=== PATIENT | female | born 1940 | race Caucasian/White ===

== ENCOUNTER 2020-03-26 01:26 | Inpatient (IN) | payer OTHER ==
--- OUTSIDE RECORDS SUMMARY | 2020-03-26 01:28 | XMS REPORT | Continuity of Care Document ---
:1940 Author Organization [facility] t Address [address] [place] [address] Care Team Providers Name Role Phone Isis PRASHANTH Attending Clinician Fernando Mendez MD Attending Clinician Ollie MELO, K.H. Attending Clinician Payers Payer Name Policy Type Policy Number Effective Date Expiration Date S ource Problems This patient has no known problems. Allergies, Adverse Reactions, Alerts This patient has no known allergies or adverse reactions. Medications This patient has no known medications. Procedures This patient has no known procedures. Encounters Start End Encounter Admission Attending Care Care Encounter Source Date/Time Date/Time Type Type Clinicians Facility Department ID 2020-03-23 2020-03-23 Urgent Isis [facility] [id number] 18:38:49 18:58:49 Care [place] [id number] Mi [id number] Ria [phone] nal [address] 2020-03-02 2020-03-02 Refill JAY Mendez 1.2.840.114 [id number] 00:00:00 00:00:00 Margret A Bulger [id number] [place] [id number] Professio [phone] [address] 2020-02-18 2020-02-18 [place] Mendez, [facility] 1.2.840.114 [id number] 00:00:00 00:00:00 Margret Fernando ReeseBulger [id number] [place] [id number] Professio [phone] [address] 2020-02-10 2020-02-10 Refill Mendez, [facility] 1.2.840.114 [id number] 00:00:00 00:00:00 Margretkim Stark [id number] [place] [id number] Professio [phone] [address] 2020-02-09 2020-02-09 [place] [facility] [id number] 00:00:00 00:00:00 Margret Stark [id number] [place] [id number] Professio [phone] [address] 2019-12-09 2019-12-09 [facility] [id number] 00:00:00 00:00:00 Sendkristie K.H. Bulger [id number] [place] [id number] Professio [phone] [address] 2019-12-08 2019-12-08 [place] [facility] 1.2.840.114 [id number] 00:00:00 00:00:00 Margret [place]eseton 350.1.13.10 [place] [id number] Professio [phone] [address] 2019-12-01 2019-12-01 [facility] [id number] 00:00:00 00:00:00 Sendil K.H. Bulger [id number] [place] 4.2.7.2.686 Professio [phone] [address] 2019-11-20 2019-11-20 [facility]phone [facility] 1.2.840.114 [id number] 00:00:00 00:00:00 Margret Stark [id number] [place] [id number] [facility] [phone] [address] 2019-11-10 2019-11-10 Office Andrea [facility] [id number] 14:20:49 16:09:13 Visit Margretaniceto Rees[place] 350.1.13.10 [place] 4.2.7.2.686 [facility] [phone] [address] Results Test Description Test Time Test Comments Results Result [facility] e Comments BREAST,BIOPSY 2018-08-21 08:50:00 RUN DATE: 08/21/18 [facility] PAGE 1 RUN TIME: 902 Specimen Inquiry RUN USER: INTERFACE RYAN ENT: JENNIE RASCON LOC: ANN U #: [id number] AGE/SX: 78/F ROOM: RE08/12/18REG DR: Margret Mendez : 42 BED: DIS: STATUS: REG RCR TLOC: SPEC #: [id number] RECD: 08/19/18 STATUS: SHAHEEN VEGA #: [id number] BARBARA: 08/19/18- SUBM DR: Margret Mendez MD ENTERED: 08/20/18 SP TYPE: BREABX OTHR DR: Catherine Ndiaye MD ORDERED: LEVEL IV CODES: [id number] - BREAST, NOS COPIES TO: Catherine Ndiaye MD [address] [place] [address] 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 central comedo necrosis coarse microcalcifications ER/MO prognostic markers pending on block A1 ADDENDUM PENDING, SPECIMEN IS BEING SENT TO [facility] Tissue code 1 CPT code(s): 97571 cds/kr dt: 08/21/18 CONTINUED ON NEXT PAGE RUN DATE: 08/21/18 [facility] PAGE 2 RUN TIME: 0903 Specimen Inquiry RUN USER: INTERFACE SPEC #: [id number] PATIENT: JENNIE RASCON #[id number] (Continued) ------- GROSS DESCRIPTION ANATOMIC SOURCE OF TISSUE (per Requisition): RIGHT breast calcifications 3:00 position The specimen is received in a formalin-filled container, labeled with the patient's name and designated "RIGHT breast @ 3:00". The specimen consists of multiple ring-pink and yellow, fibrofatty, cylindrical soft tissues, 0.2 - 2.3 cm in length, submitted in toto as A1 and A2, with microcalcifications as A1. 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 No invasive carcinoma is identified. Prognostic markers for ER and MO will be performed on block A1. monica/kr dt: 08/21/18 --- Signed Ed Sharpe Jose David 08/21/18 0850 END OF REPORT BREAST,BIOPSY 2018-08-21 08:50:00 RUN DATE: 08/29/18 [facility] PAGE 1 RUN TIME: 1711 Specimen Inquiry RUN USER: INTERFACE RYAN ENT: JENNIE RASCON LOC: ANN U #: [id number] AGE/SX: 78/F ROOM: RE08/19/18REG DR: Margret Mendez : 42 BED: DIS: STATUS: REG REF TLOC: SPEC #: [id number] RECD: 08/19/18 STATUS: SHAHEEN VEGA #: [id number] BARBARA: 08/19/18- SUBM DR: Margret Mendez MD ENTERED: 08/20/18 SP TYPE: BREABX OTHR DR: Catherine Ndiaye MD ORDERED: LEVEL IV ADDENDUM FINDINGS Addendum #1 Entered: 08/25/18 The following results are received from [facility], [place], [place] on August 22, 2018. BODY SITE: RIGHT BREAST [id number] HISTOLOGY IMAGE ANALYSIS, GLOBAL INTERPPRETATION: Analysis is performed on the in-situ component present. ER: POSITIVE Tumor Stained: 99% Intensity: 3+ Internal Control: Present, positive PgR: POSITIVE Tumor Stained: 10% Intensity: 3+ Internal Control: Present, positive COMMENT: Specimen handling met the requirements specified in the latest version of the ASCO/CAP guidelines. I acknowledge the above findings. CTam Sharpe M.D., Pathologist/ksr August 25, 2018 @ 0923 Addendum Signed Ed Sharpe 08/29/18 9569 (prelim) CONTINUED ON NEXT PAGE RUN DATE: 08/29/18 [facility] PAGE 2 RUN TIME: 171 Specimen Inquiry RUN USER: INTERFACE SPEC #: [id number] PATIENT: JENNIE RASCON #[id number] (Continued) ------- ADDENDUM FINDINGS (Continued) Ed Sharpe 08/29/18 1711 CODES: [id number] - BREAST, NOS COPIES TO: Catherine Ndiaye MD [address] [place] [address] [email or web address] Margret Mendez MD [address] [place] [address] [address] [place], [place] [address] PROCEDURES: LEVEL IV (Incomplete) TISSUES: BREAST, NOS - RIGHT BREAST BIOPSY CLINICAL HISTORY 78 year old, stereotactic biopsy, 7 cores in formalin at 3:00 pm (wpd) NOTE: RIGHT breast calcifications @ 3:00: In formalin: 08/19/18 @ 1500 Out of formalin: 08/20/18 @ 1825 FINAL DIAGNOSIS RIGHT breast at 3:00, core biopsies: - 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), 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 central comedo necrosis coarse microcalcifications ER/MO prognostic markers pending on block A1 ADDENDUM PENDING, SPECIMEN IS BEING SENT TO [facility] Tissue code 1 CPT code(s): 10859 cds/kr dt: 08/21/18 CONTINUED ON NEXT PAGE RUN DATE: 08/29/18 [facility] PAGE 3 RUN TIME: 1711 Specimen Inquiry RUN USER: INTERFACE SPEC #: [id number] PATIENT: JENNIE RASCON #[id number] (Continued) ------- GROSS DESCRIPTION ANATOMIC SOURCE OF TISSUE (per Requisition): RIGHT breast calcifications 3:00 position The specimen is received in a formalin-filled container, labeled with the patient's name and designated "RIGHT breast @ 3:00". The specimen consists of multiple ring-pink and yellow, fibrofatty, cylindrical soft tissues, 0.2 - 2.3 cm in length, submitted in toto as A1 and A2, with microcalcifications as A1. 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 No invasive carcinoma is identified. Prognostic markers for ER and MO will be performed on block A1. monica/vivi dt: 08/21/18 --- Signed Ed Sharpe 08/21/18 0850 END OF REPORT
--- OUTSIDE RECORDS SUMMARY | 2020-03-26 01:28 | XMS REPORT | Summary of Care ---
:1940 Author Organization [facility] [place] [facility] Address [address] [place] [address] Care Team Providers Name Role Phone Margret Mendez MD Primary Care Provider Reason for Visit Reason Comments Refill Request Encounter Details Date Type Department Care Team Description 02/10/2020 Refill [facility] Pediatric and Lilliana Mendez, Refill Request Adult Primary Care- [address] [facility] [address] [place] [address] [place] [address] [phone] Allergies Active Allergy Reactions Severity Noted Date Comments Codeine Nausea and/or Vomiting 09/23/2018 Cephalexin Other - See comments 09/18/2016 Reactio n - Yeast Infection documented as of this encounter (statuses as of 02/13/2020) Medications Medication Sig Dispensed Refills Start End Status Date Date CYCLOSPORINE (RESTASIS Place in 0 Active OPHTHALMIC)Indications: each eye. Palpitations CALCIUM CITRATE/VITAMIN Take by 0 Active D3 (CALCIUM CITRATE + D mouth. ORAL)Indications: Palpitations Walker (ULTRA-LIGHT Use as 1 Each 0 01/25/20 Active ROLLATOR) Misc directed 18 blood sugar diagnostic Use TID, DX 100 Box 11 02/01/20 Active strip E11.9 (Brand 18 upon insurance approval) lancets-blood glucose 1 Each 3 100 Each 11 02/01/20 Active strips 30 gauge Cmpk (three) times 18 daily. DX E11.9 (Brand upon insurance approval) Blood-Glucose Meter Use TID, DX 1 Each 0 02/01/20 Active (BLOOD GLUCOSE E11.9 (Brand 18 MONITORING) Kit upon insurance approval) cyanocobalamin/cobamami Place under 0 Active de (B12 SL) the tongue. Extended release multivitamin tablet Take 1 tablet 0 Active by mouth daily. sennosides (SENOKOT Take by 0 Active ORAL) mouth. cholecalciferol, Take 1,000 0 Ac tive vitamin D3, (VITAMIN Units by D3) 1,000 unit tablet mouth daily. ipratropium 0.03 % Use 2 Sprays 30 mL 3 02/25/20 Active nasal sprayIndications: in each 18 Cough nostril 3 (three) times daily. dapagliflozin (FARXIGA) Take 1 tablet 90 tablet 3 05/24/19 Active 5 mg tabletIndications: by mouth 20 Type 2 diabetes daily. mellitus without complication, without long-term current use of insulin mirabegron (MYRBETRIQ) Take 1 tablet 90 tablet 3 06/07/19 Active 50 mg by mouth 20 tabletIndications: daily. Palpitations diclofenac 50 mg Take 1 tablet 90 tablet 3 09/22/19 Active tabletIndications: by mouth 3 20 Primary osteoarthritis (three) times of right knee daily. Diclofenac Sodium Take 2-4 100 g 3 09/23/19 Ac tive (VOLTAREN) 1 % grams three 20 gelIndications: times a day Osteoarthritis as needed for involving multiple pain joints on both sides of body ergocalciferol, vitamin Take 1 12 capsule 1 11/20/19 Active d2, (VITAMIN D2) 1,250 capsule by 20 mcg (50,000 unit) mouth weekly. capsuleIndications: Vitamin D deficiency lisinopril (PRINIVIL) 5 Take 1 tablet 90 tablet 3 12/04/19 Active mg tablet by mouth 20 daily. fluconazole 150 mg Take one 6 tablet 0 12/16/19 A ctive tabletIndications: tablet now 20 Yeast infection for yeast infection, and in 72 hours take a second pill. Repeat this for 2 weeks. DILTIAZEM 180 mg 24 hr TAKE ONE 90 capsule 3 02/13/20 Active capsuleIndications: CAPSULE BY 20 Palpitations MOUTH EVERY DAY ESCITALOPRAM OXALATE 10 TAKE ONE 90 tablet 3 02/13/20 Active mg tabletIndications: TABLET BY 20 Reactive depression MOUTH EVERY DAY PRAVASTATIN 20 mg TAKE ONE 90 tablet 3 02/13/20 Ac tive tabletIndications: TABLET BY 20 Palpitations MOUTH EVERY DAY AT BEDTIME HYDROCHLOROTHIAZIDE TAKE ONE 90 capsule 3 02/13/20 Active 12.5 mg CAPSULE BY 20 capsuleIndications: MOUTH EVERY Palpitations DAY BYSTOLIC 10 mg TAKE ONE 90 tablet 3 02/13/20 Activ e tabletIndications: TABLET BY 20 Palpitations MOUTH EVERY DAY escitalopram oxalate 10 Take 1 tablet 90 tablet 3 02/07/20 Discontinued mg tabletIndications: by mouth 19 (Reorder) Reactive depression daily. diltiazem XR 180 mg 24 Take 1 90 capsule 3 02/07/20 Discontinued hr capsuleIndications: capsule by 19 (Reorder) Palpitations mouth daily. hydroCHLOROthiazide Take 1 90 capsule 3 02/07/20 Discontinued 12.5 mg capsule by 19 (Reorder) capsuleIndications: mouth daily. Palpitations nebivolol 10 mg Take 1 tablet 90 tablet 3 02/07/20 Discontinued tabletIndications: by mouth 19 ( Reorder) Palpitations daily. pravastatin 20 mg Take 1 tablet 90 tablet 3 02/07/20 Discontinued tabletIndications: by mouth at 19 (Reorder) Palpitations bedtime. Hospital, Clinic, or Ordered Dose Route Frequency Start Date End D ate Status Other Facility Administered Medication clindamycin in d5w 600 mg IVPB O.R. HOLDING ONCE 09/23/2018 Active (CLEOCIN) 600 mg/50 mL Piggyback 600 mg documented as of this encounter (statuses as of 02/13/2020) Active Problems Problem Noted Date Ductal carcinoma in situ (DCIS) of right breast 2018 Overview: Added automatically from request for annie turner [id number] Chronic right shoulder pain 03/11/2018 Decreased range of motion of right shoulder 03/11/2018 Decreased activities of daily living (ADL) 03/11/2018 Type 2 diabetes mellitus without complication, without long-term current 02/24/2018 use of insulin Osteoarthritis involving multiple joints on both sides of body 02/24/2018 Reactive depression 02/24/2018 documented as of this encounter (statuses as of 02/13/2020) Immunizations Name Administration Dates Next Due Influenza High Dose 02/06/2019, 02/24/2018 Pneumococcal Polysaccharide, PPSV23 (PNEUMOVAX) 11/06/2018 documented as of this encounter Social History Tobacco Use Types Packs/Day Years Used Date Never Smoker Smokeless Tobacco: Never Used Alcohol Use Drinks/Week oz/Week Comments No Sex Assigned at Date Recorded Not on file documented as of this encounter Last Filed Vital Signs Not on filedocumented in this encounter Plan of Treatment Health Maintenance Due Date Last Done Comments DTaP,Tdap,and Td Vaccines (1 - 02/12/1960 Tdap) Zoster Recombinant Vaccine 1991 (SHINGRIX) (1 of 2) Medicare Wellness Visit 2006 EYE EXAM 03/04/2019 03/04/2018 FOOT EXAM 04/28/2019 04/28/2018, 04/28/2018 URINE MICROALBUMIN 04/28/2019 04/28/2018 INFLUENZA VACCINE (#1) 2019 02/06/2019, 02/24/2018 Depression Screening 04/14/2020 04/14/2019 HgA1C 05/13/2020 11/11/2019, 11/06/2018, 04/28/2018, Additional history exists CREATININE (SERUM) 11/10/2020 11/11/2019, 11/07/2018, 02/25/2018, Additional history exists LDL-C 11/10/2020 11/11/2019, 12/16/2017, 10/29/2016 Osteoporosis Screening 10/06/2025 10/07/2015 PNEUMOCOCCAL VACCINES 65+ Completed 11/06/2018 documented as of this encounter Results Not on filedocumented in this encounter Visit Diagnoses Diagnosis Palpitations Reactive depression Dysthymic disorder documented in this encounter Insurance Payer Benefit Plan / Subscriber ID Effective Dates Phone Addre ss Type Group MEDICARE MEDICARE PART [id number] 2006-[place] [phone] Medicare A & B [place] 2 [id number] LAXMI [place]ERT[place] [id number] BASIA LIV[place] [id number] 2011-[place] field nt documented as of this encounter
--- OUTSIDE RECORDS SUMMARY | 2020-03-26 01:29 | XMS REPORT | Summary of Care ---
:1940 Author Organization [facility] - [facility] Address [address] [place] [address] Care Team Providers Name Role Phone Margret Mendez MD Primary Care Provider [phone] Reason for Visit Reason Comments Rx Concern/Question Encounter Details Date Type Department Care Team Description 02/09/2020 Telephone [facility] Pediatric Nneka Mendez Rx Concern/Question and Adult Primary Care- MD Fernando [place] [address], [address] [place] [address] [place] [address] [phone] Allergies Active Allergy Reactions Severity Noted Date Comments Codeine Nausea and/or Vomiting 09/23/2018 Cephalexin Other - See comments 09/18/2016 Reactio n - Yeast Infection documented as of this encounter (statuses as of 02/18/2020) Medications Medication Sig Dispensed Refills Start End [...] second pill. Repeat this for 2 weeks. escitalopram oxalate 10 Take 1 tablet 90 tablet 3 02/07/20 Discontinued mg tabletIndications: by mouth 19 (Reorder) Reactive depression daily. diltiazem XR 180 mg 24 Take 1 90 capsule 3 02/07/20 Discontinued hr capsuleIndications: capsule by 19 (Reorder) Palpitations mouth daily. hydroCHLOROthiazide Take 1 90 capsule 3 10/11/20 Discontinued 12.5 mg capsule by 19 (Reorder) [...] as of this encounter (statuses as of 02/18/2020) Active Problems Problem Noted Date Ductal carcinoma in situ (DCIS) of right breast 2018 Overview: Added automatically from request for annie turner [id number] Chronic right shoulder pain 03/11/2018 Decreased range of motion of right shoulder 03/11/2018 Decreased activities of daily living (ADL) 03/11/2018 Type 2 diabetes mellitus without complication, without long-term current 02/24/2018 use of insulin Osteoarthritis involving multiple joints on both sides of body 02/24/2018 Reactive depression 02/24/2018 documented as of this encounter (statuses as of 02/18/2020) Immunizations Name Administration Dates Next Due Influenza [...] Signs Not on filedocumented in this encounter Miscellaneous Notes Telephone Encounter - Margret Mendez MD - 02/18/2020 8:33 AM CDT Please assist in getting hospital bed, let patient know we are working on this. She needs an appointment in 3 months, ok for telehealth. Hospital Bed: I certify that Ondina Hines is under my care and that I had a oagg-qe-svoy encounter with this patienton 11/10/2019. The primary reason for the durable medical equipment: chronic pain- requires positioning of the bodyto alleviate pain in ways not feasible in ordinary bed. I am ordering and certify that based on my findings, the following is medically necessary durable medical equipment: Hospital bed. Height: Ht Readings from Last 1 Encounters: 04/14/19 5' 6" (1.676 m) Weight: Wt Readings from Last 1 Encounters: 11/10/19 193 lb 4.8 oz (87.7 kg) Duration of need: 99 months. elephone Encounter - Amelia Oakes - 02/18/2020 7:37 AM CDTPlease address greater than 48 hours. elephone Encounter - Amelia Oakes - 02/16/2020 7:38 AM CDTPlease address greater than 48 hours. elephone Encounter - Mary Shoemaker RN - 02/15/2020 11:53 AM CDTPatient is complaining of generalized weakness with her knees, legs and complaints of body pain. Nadya ent also states she is needing assistance with ambulating and getting in and out of shower and bed. elephone Encounter - Margret Mendez MD - 02/14/2020 5:59 PM CDTI need more information for medicare. Is she having severe arthritis or severe chronic body pain? Telephone Encounter - Amelia Oakes - 02/09/2020 3:32 PM CDTPt stated she is having a hard time getting in and out of the bed in would like to know if a prescription can be written for a hospital bed. documented in this encounter Plan of Treatment Health Maintenance Due Date Last Done Comments DTaP,Tdap,and Td Vaccines ( - 02/12/1960 Tdap) Zoster Recombinant Vaccine 1991 [...] Results Not on filedocumented in this encounter Insurance Payer Benefit Plan / Subscriber ID Effective Dates Phone Addre ss Type Group MEDICARE MEDICARE PART [id number] 2006-[place] [phone] Medicare A & B nt 2 [id number] LAXMI [place]ERT[place] [id number] BASIA LIV[place] [id number] 2011-[place] field nt documented as of this encounter
--- OUTSIDE RECORDS SUMMARY | 2020-03-26 01:29 | XMS REPORT | Summary of Care ---
:1940 Author Organization [facility] - [facility] Address [address] [place] [address] Care Team Providers Name Role Phone Margret Mendez MD Primary Care Provider Reason for Visit Reason Comments DME Hospital Bed Encounter Details Date Type Department Care Team Description 02/18/2020 Telephone [facility] Nneka Mendez DME (Hospital Bed) and Adult Primary Care- MD Fernando [place] [address], [address] [place] [address] [place] [address] [phone] Allergies Active Allergy Reactions Severity Noted Date Comments Codeine Nausea and/or Vomiting 09/23/2018 Cephalexin Other - See comments 09/18/2016 Reactio n - Yeast Infection documented as of this encounter (statuses as of 02/18/2020) Medications Medication Sig Dispensed Refills Start Date End Date Status CYCLOSPORINE (RESTASIS Place in each 0 Active OPHTHALMIC)Indications: eye. Palpitations CALCIUM CITRATE/VITAMIN Take by mouth. 0 Active D3 (CALCIUM CITRATE + D ORAL)Indications: Palpitations Walker (ULTRA-LIGHT Use as directed 1 Each 0 01/24/2018 Active ROLLATOR) Misc blood sugar diagnostic Use TID, DX 100 Box 11 01/31/2018 Active strip E11.9 (Brand upon insurance approval) lancets-blood glucose 1 Each 3 100 Each 11 01/31/2018 Active strips 30 gauge Cmpk (three) times daily. DX E11.9 (Brand upon insurance approval) Blood-Glucose Meter Use TID, DX 1 Each 0 01/31/2018 Active (BLOOD GLUCOSE E11.9 (Brand MONITORING) Kit upon insurance approval) cyanocobalamin/cobamamide Place under 0 Active (B12 SL) the tongue. Extended release multivitamin tablet Take 1 tablet 0 Active by mouth daily. sennosides (SENOKOT ORAL) Take by mouth. 0 Active cholecalciferol, vitamin Take 1,000 0 Active D3, (VITAMIN D3) 1,000 Units by mouth unit tablet daily. ipratropium 0.03 % nasal Use 2 Sprays in 30 mL 3 8 Active sprayIndications: Cough each nostril 3 (three) times daily. dapagliflozin (FARXIGA) 5 Take 1 tablet 90 tablet 3 05/24/2019 Active mg tabletIndications: by mouth daily. Type 2 diabetes mellitus without complication, without long-term current use of insulin mirabegron (MYRBETRIQ) 50 Take 1 tablet 90 tablet 3 06/07/2019 Active mg tabletIndications: by mouth daily. Palpitations diclofenac 50 mg Take 1 tablet 90 tablet 3 09/22/2019 Active tabletIndications: by mouth 3 Primary osteoarthritis of (three) times right knee daily. Diclofenac Sodium Take 2-4 grams 100 g 3 09/23/2019 Active (VOLTAREN) 1 % three times a gelIndications: day as needed Osteoarthritis involving for pain multiple joints on both sides of body ergocalciferol, vitamin Take 1 capsule 12 capsule 1 11/20/2019 Active d2, (VITAMIN D2) 1,250 by mouth mcg (50,000 unit) weekly. capsuleIndications: Vitamin D deficiency lisinopril (PRINIVIL) 5 Take 1 tablet 90 tablet 3 12/04/2019 Active mg tablet by mouth daily. fluconazole 150 mg Take one tablet 6 tablet 0 12/16/2019 Active tabletIndications: Yeast now for yeast infection infection, and in 72 hours take a second pill. Repeat this for 2 weeks. DILTIAZEM 180 mg 24 hr TAKE ONE 90 capsule 3 02/13/2020 Active capsuleIndications: CAPSULE BY Palpitations MOUTH EVERY DAY ESCITALOPRAM OXALATE 10 TAKE ONE TABLET 90 tablet 3 02/13/2020 Active mg tabletIndications: BY MOUTH EVERY Reactive depression DAY PRAVASTATIN 20 mg TAKE ONE TABLET 90 tablet 3 02/13/2020 Active tabletIndications: BY MOUTH EVERY Palpitations DAY AT BEDTIME HYDROCHLOROTHIAZIDE 12.5 TAKE ONE 90 capsule 3 02/13/2020 Active mg capsuleIndications: CAPSULE BY Palpitations MOUTH EVERY DAY BYSTOLIC 10 mg TAKE ONE TABLET 90 tablet 3 02/13/2020 Active tabletIndications: BY MOUTH EVERY Palpitations DAY Hospital, Clinic, or Ordered Dose Route Frequency [...] Added automatically from request for annie turner [id number] Chronic right shoulder pain 03/11/2018 Decreased range [...] this encounter Miscellaneous Notes Telephone Encounter - Clotilde Ricketts - 02/18/2020 5:02 PM [facility] through [facility]. Clotilde Ricketts 02/18/2020 5:03 PM documented in this encounter Plan of Treatment [...] Addre ss Type Group MEDICARE MEDICARE PART [id number] 2006-[place] [phone] Medicare A & B nt 2 [id number] [place] [id number] [place] [place] [id number] 2011-Jodi Tric are nt documented as of this encounter
--- OUTSIDE RECORDS SUMMARY | 2020-03-26 01:29 | XMS REPORT | Summary of Care ---
:1940 Author Organization [facility] - [facility] Address [address] [place] [address] Care Team Providers Name Role Phone Margret Mendez MD Primary Care Provider Reason for Visit Reason Comments Refill Request Encounter Details Date Type Department Care Team Description 03/02/2020 Refill [facility] Pediatric and Lilliana Mendez, Refill Request Adult Primary Care- [address] [facility] [address] [place] [address] [place] [address] [phone] Allergies Active Allergy Reactions Severity Noted Date Comments Codeine Nausea and/or Vomiting 09/23/2018 Cephalexin Other - See comments 09/18/2016 Reactio n - Yeast Infection documented as of this encounter (statuses as of 03/04/2020) Medications Medication Sig Dispensed Refills Start End [...] 18 Cough nostril 3 (three) times daily. Diclofenac Sodium Take 2-4 100 g [...] TABLET BY 20 Palpitations MOUTH EVERY DAY mirabegron (MYRBETRIQ) Take 1 tablet 90 tablet 3 03/04/20 Active 50 mg by mouth 20 tabletIndications: daily. Palpitations dapagliflozin (FARXIGA) Take 1 tablet 90 tablet 3 03/04/20 Active 5 mg tabletIndications: by mouth 20 Type 2 diabetes daily. mellitus without complication, without long-term current use of insulin diclofenac 50 mg Take 1 tablet 90 tablet 3 03/04/20 Active tabletIndications: by mouth 3 20 Primary osteoarthritis (three) times of right knee daily. dapagliflozin (FARXIGA) Take 1 tablet 90 tablet 3 05/24/19 Discontinued 5 mg tabletIndications: by mouth 20 020 (Reorder) Type 2 diabetes daily. mellitus without complication, without long-term current use of insulin mirabegron (MYRBETRIQ) Take 1 tablet 90 tablet 3 06/07/1909/28 Discontinued 50 mg by mouth 20 020 (Reorder) tabletIndications: daily. Palpitations diclofenac 50 mg Take 1 tablet 90 tablet 3 09/22/19 Discontinued tabletIndications: by mouth 3 20 020 (Reorder) Primary osteoarthritis (three) times of right knee daily. Hospital, Clinic, or Ordered Dose Route Frequency Start Date End D ate Status Other Facility Administered Medication clindamycin in d5w 600 mg IVPB O.R. HOLDING ONCE 09/23/2018 Active (CLEOCIN) 600 mg/50 mL Piggyback 600 mg documented as of this encounter (statuses as of 03/04/2020) Active Problems Problem Noted Date Ductal carcinoma in situ (DCIS) of right breast 2018 Overview: Added automatically from request for annie johnny [id number] Chronic right shoulder pain 03/11/2018 Decreased range of motion of right shoulder 03/11/2018 Decreased activities of daily living (ADL) 03/11/2018 Type 2 diabetes mellitus without complication, without long-term current 02/24/2018 use of insulin Osteoarthritis involving multiple joints on both sides of body 02/24/2018 Reactive depression 02/24/2018 documented as of this encounter (statuses as of 03/04/2020) Immunizations Name Administration Dates Next Due Influenza [...] in this encounter Visit Diagnoses Diagnosis Palpitations Type 2 diabetes mellitus without complic ation, without long-term current use of insulin Primary osteoarthritis of right knee Primary localized osteoarthrosis, lower leg documented in this encounter Insurance Payer Benefit Plan / Subscriber ID Effective Dates Phone Addre ss Type Group MEDICARE MEDICARE PART [id number] 2006-[place] [phone] Medicare A & B nt 2 [id number] [place] [id number] [place] [place] [id number] 2011-Jodi field nt documented as of this encounter
--- OUTSIDE RECORDS SUMMARY | 2020-03-26 01:30 | XMS REPORT | Summary of Care ---
:[address] [facility] - [facility] Address [address] [place] [id number] Care Team Providers Name Role Phone Margret Mendez MD Primary Care Provider [phone] Reason for Visit Reason Comments Fever low grade Cough All symptoms started last ni ght Encounter Details Date Type Department Care Team Description 03/23/2020 Urgent Care [facility] Family Unknown, Attending Denisse Calixto (Primary Dx); Medicine - Logan Jon Marinelli, ACCOUNTS PAYABLE PROFESSIONAL [address] [place] [address] [phone] Exposure to SARS-associated coronavirus [address] [place] [id number] Allergies Active Allergy Reactions Severity Noted Date Comments Codeine Nausea and/or Vomiting 09/23/2018 Cephalexin Other - See comments 09/18/2016 Reactio n - Yeast Infection documented as of this encounter (statuses as of 03/23/2020) Medications Medication Sig Dispensed Refills Start Date [...] Cough each nostril 3 (three) times daily. Diclofenac Sodium Take 2-4 grams 100 [...] Active tabletIndications: BY MOUTH EVERY Palpitations DAY mirabegron (MYRBETRIQ) 50 Take 1 tablet 90 tablet 3 03/04/2020 Active mg tabletIndications: by mouth daily. Palpitations dapagliflozin (FARXIGA) 5 Take 1 tablet 90 tablet 3 03/04/2020 Active mg tabletIndications: by mouth daily. Type 2 diabetes mellitus without complication, without long-term current use of insulin diclofenac 50 mg Take 1 tablet 90 tablet 3 03/04/2020 Active tabletIndications: by mouth 3 Primary osteoarthritis of (three) times right knee daily. Hospital, Clinic, or Ordered Dose Route Frequency Start Date End D ate Status Other Facility Administered Medication clindamycin in d5w 600 mg IVPB O.R. HOLDING ONCE 09/23/2018 Active (CLEOCIN) 600 mg/50 mL Piggyback 600 mg documented as of this encounter (statuses as of 03/23/2020) Active Problems Problem Noted Date Ductal carcinoma in situ (DCIS) of right breast 2018 Overview: Added automatically from request for annie turner [id number] Chronic right shoulder pain 03/11/2018 Decreased range of motion of right shoulder 03/11/2018 Decreased activities of daily living (ADL) 03/11/2018 Type 2 diabetes mellitus without complication, without long-term current 02/24/2018 use of insulin Osteoarthritis involving multiple joints on both sides of body 02/24/2018 Reactive depression 02/24/2018 documented as of this encounter (statuses as of 03/23/2020) Immunizations Name Administration Dates Next Due Influenza High Dose 02/06/2019, 02/24/2018 Pneumococcal Polysaccharide, PPSV23 (PNEUMOVAX) 11/06/2018 documented as of this encounter Social History Tobacco Use Types Packs/Day Years Used Date Never Smoker Smokeless Tobacco: Never Used Alcohol Use Drinks/Week oz/Week Comments No Sex Assigned at Date Recorded Not on file COVID-19 Exposure Response Date Recorded In the last month, have you been in contact with No / Unsure 03/23/2020 6:45 PM [facility]OWER someone who was confirmed or suspected to have Coronavirus / COVID-19? documented as of this encounter Last Filed Vital Signs Vital Sign Reading Time Taken Comments Blood Pressure 148/81 03/23/2020 6:48 PM [facility] Pulse 68 03/23/2020 6:46 PM [facility] Temperature 37.2 C (99 F) 03/23/2020 6:46 PM [facility] Respiratory Rate 18 03/23/2020 6:46 PM [facility] Oxygen Saturation 96% 03/23/2020 6:46 PM [facility] [employer] Inhaled Oxygen Concentration - - Weight 83.9 kg (185 lb) 03/23/2020 6:46 PM [facility] Height 162.6 cm (5' 4") 03/23/2020 6:46 PM [facility] Body Mass Index 31.76 03/23/2020 6:46 PM [facility] [employer] documented in this encounter Patient Instructions Patient InstructionsJon Marinelli, PRASHANTH - 03/23/2020 7:00 PM CST Patient Education Coronavirus Disease 2019 (COVID-19): Prevention The best prevention is to have no contact with the SARS-CoV-2 virus. There is no vaccine yet. During a pandemic, it's especially important to keep up on recommended vaccines for other illnesses.This is more true if you're at higher risk for severe illness from COVID-19, the flu, or pneumonia. This includes older adults and those who have long-term (chronic) health conditions. Getting a yearlyflu vaccine is advised for everyone 6 months old and older, with rare exceptions. Health experts advise the flu vaccine to protect you and others. The flu vaccine helps protect those at high-risk for serious illness, and lowers the strain on hospitals during the COVID-19 pandemic. Canceling travel and other outings Stay informed about COVID-19 in your area. Follow local instructions about being in public. Be awareof events in your community that may be postponed or canceled, such as school and sporting events. You may be advised not to attend public gatherings. You will be advised to stay at least 6 feet from others as much as possible. This is called "social distancing." You may be advised to stay at home and isolate yourself as much as possible if COVID-19 is in your area. You may hear terms such as "self isolate, "quarantine," stay at home, and senior living in place. The CDC advises that people should not travel to areas where there are COVID-19 outbreaks right now for any reason that is not urgent. For the most current CDC travel advisories, visit the CDC website at www.cdc.gov/coronavirus/2019- ncov/travelers.Dont go on cruises or do non-essential travel right now. When you are at home Wash your hands often. Use soap and clean, running water for at least 20 seconds. If you don't have access to soap and water, use an alcohol-based hand heater room helper often. Make sure it has at least 60% alcohol. Don't touch your eyes, nose, or mouth unless you have clean hands. Dont kiss someone who is sick. If you need to cough or sneeze, do it into a tissue. Then throw the tissue into the trash. If youdon't have tissues, cough or sneeze into the bend of your elbow. When possible, don't touch "high-touch" shared surfaces such as doorknobs and handles, cabinet handles, and light switches. Clean frequently-touched home surfaces often with disinfectant. This includes desk surfaces, printers, phones, kitchen counters, tables, fridge door handle, bathroom surfaces, and any soiled surface. Closely follow disinfectant label instructions. Go to the CDCs detailed cleaning website at www.c dc.gov/coronavirus/2019-ncov/prepare/cleaning-disinfection.html. Check your home supplies. Consider keeping a 2-week supply of medicines, food, and other needed household items. Make a plan for childcare, work, and ways to stay in touch with others. Know who will help you ifyou get sick. Don't be around people who are sick. There is no evidence right now that animals spread SARS-CoV-2. But it's always a good idea to wash your hands after touching any animals. Don't touch animals that may be sick. Dont share eating or drinking utensils with sick people. If you leave home Stay at least 6 feet away from all people. This is called "social distancing." When possible, don't touch "high-touch" public surfaces such as doorknobs and handles, cabinet handles, and light switches. If you touch these surfaces, try to clean them first with a disinfecting wipe. Or touch them using a tissue or paper towel. Use an alcohol-based hand heater room helper often. Make sure it has at least 60% alcohol. Don't touch your eyes, nose, or mouth unless you have clean hands. If you need to cough or sneeze, do it into a tissue. Then throw the tissue into the trash. If youdon't have tissues, cough or sneeze into the bend of your elbow. Don't attend public gatherings if possible. If you do attend public gatherings, follow social distancing rules. Don't share food or personal items such as water bottles. The CDC advises wearing a cloth face mask in public. During a public health emergency, medical face masks may be reserved for healthcare workers. You may need to make a cloth face mask of your own. You can do this using a bandana, T- shirt, or other cloth. The CDC has instructions on how to make a mask. Wear the mask so that it covers both your nose and mouth. The CDC advises all people over age 2 to wear cloth face masks in public settings when around people outside of their household, especially when it's hard to socially distance. For example, wear a mask in populated places such as public transit, public protests and marches, and crowded stores, bars, and restaurants. Cloth masks may help prevent people who have COVID-19 form spreading the virus to others. Cloth masks are most likely to reduce COVID-19 spread when masks are widely used by people who are out in the public. Certain people should not wear a face mask. This includes: ? Children younger than 2 years old ? Anyone with a health, developmental, or mental health condition that can be made worse by wearing a mask ? Anyone who is unconscious or unable to remove the face covering without help. See the CDC's guidance on who should not wear a face mask. If you are at a work site If you feel sick in any way, go home and stay home. Tell your microfilm duplicating unit supervisor if you are well but live with someone who has COVID-19. Stay at least 6 feet away from all people. Don't shake hands with anyone. Don't attend in-person meetings, or limit how many you attend. Meet over phone or video if possible. Don't use other people's desks, phones, equipment, or offices, if possible. Wash your hands often. Use soap and clean, running water for at least 20 seconds. If you don't have access to soap and water, use an alcohol-based hand heater room helper often. Make sure it has at least 60% alcohol. Don't touch your eyes, nose, or mouth unless you have clean hands. The CDC advises wearing a cloth face mask in public. During a public health emergency, medical face masks may be reserved for healthcare workers. You may need to make a cloth face mask of your own. You can do this using a bandana, T- shirt, or other cloth. The CDC has instructions on how to make a mask. Wear the mask so that it covers both your nose and mouth. Follow the CDC's advice listed earlier. When possible, don't touch "high-touch" public surfaces such as doorknobs and handles, cabinet handles, and light switches. If you touch these surfaces, clean them first with a disinfecting wipe. Ortouch them using a tissue or paper towel. Use office mika one person at a time. Consider not having office coffee or tea, or group foods. Dont have meals in groups. Clean work surfaces often with disinfectant. This includes desk surfaces, photocopier, printer, phones, kitchen counters, fridge door handle, bathroom surfaces, and others. Dont touch other peoples personal work tools, such as phones, keyboards, pens, and other items. Dont touch other peoples eating or drinking utensils. If you need to cough or sneeze, do it into a tissue. Then throw the tissue into the trash. If youdon't have tissues, cough or sneeze into the bend of your elbow. If you have been exposed to a person with COVID-19 If you've been exposed within that last 14 days to someone who is suspected of having COVID-19 or has tested positive for it: Call your healthcare provider and follow all instructions. Your activities and where you go likely will be restricted for up to 2 weeks. Check your community's instructions about activity restrictions. You may be directed to stay home, or "self-isolate." Take your temperature every morning and evening for at least 14 days. This is to check for fever.Keep a record of the readings. Watch for symptoms of the virus like cough or trouble breathing. Call your provider if you have symptoms. Call your provider first before going to any clinic or hospital. See the CDC's symptom grade checker. Stay home if you are sick for any reason. Your limits are different if you've had COVID-19 in the last 3 months but are fully recovered without symptoms and you have been exposed to someone with COVID-19. If you are symptom-free, you don't need to quarantine or be retested. The CDC doesn't recommend retesting unless you have symptoms of COVID-19 and your new symptoms can't be linked to another illness. Contact your healthcare provider if you have any questions. If you develop symptoms, stay home. If you had COVID-19 more than 3 months ago and have been exposed again, treat it like you've never had COVID-19 and stay home, limit your contact with others, call your provider, and monitor for symptoms. When to call your healthcare provider Call your healthcare provider if you think you have COVID-19 symptoms. These can include fever, cough, and trouble breathing. They may also include body aches, headache, chills or repeated shaking withchills, sore throat, loss of taste or smell, or diarrhea. Dont go to a healthcare facility beforespeaking to a healthcare provider. Last modified date: 12/21/2019 Marah daniels reviewed this educational content on 07/29/201919995587-6290 The [employer]. All rights reserved. This information is not intended as a substitute for professional medical care. Always follow your healthcare professional's instructions. Patient Education Viral Upper Respiratory Illness (Adult) You have a viral upper respiratory illness (URI), which is another term for the common cold. This illness is contagious during the first few days. It is spread through the air by coughing and sneezing.It may also be spread by direct contact (touching the sick person and then touching your own eyes, nose, or mouth). Frequent handwashing will decrease risk of spread. Most viral illnesses go away within 7 to 10 days with rest and simple home remedies. Sometimes the illness may last for several weeks. Antibiotics will not kill a virus, and they are generally not prescribed for this condition. Home care If symptoms are severe, rest at home for the first 2 to 3 days. When you resume activity, don't let yourself get too tired. Don't smoke. If you need help stopping, talk with your healthcare provider. Avoid being exposed to cigarette smoke (yours or others). You may use acetaminophen or ibuprofen to control pain and fever, unless another medicine was prescribed.If you have chronic liver or kidney disease, have ever had a stomach ulcer or gastrointestinal bleeding, or are taking blood- thinning medicines, talk with your healthcare provider before usingthese medicines. Aspirin should never be given to anyone under 18 years of age who is ill with a viral infection or fever. It may cause severe liver or brain damage. Your appetite may be poor, so a light diet is fine. Stay well hydrated by drinking 6 to 8 glassesof fluids per day (water, soft drinks, juices, tea, or soup). Extra fluids will help loosen secretions in the nose and lungs. Dnvx-qtc-uxzstof cold medicines will not shorten the length of time youre sick, but they may be helpful for the following symptoms: cough, sore throat, and nasal and sinus congestion. If you takeprescription medicines, ask your healthcare provider or pharmacist which wbdc-als-vhrwxmr medicines are safe to use. (Note: Don't use decongestants if you have high blood pressure.) Follow-up care Follow up with your healthcare provider, or as advised. When to seek medical advice Call your healthcare provider right away if any of these occur: Cough with lots of colored sputum (mucus) Severe headache; face, neck, or ear pain Difficultyswallowingdue to throat pain Fever of 100.4F (38C) or higher, or as directed by your healthcare provider Call 911 Call 911 if any of these occur: Chest pain, shortness of breath, wheezing, or difficulty breathing Coughing up blood Very severe pain with swallowing, especially if it goes along with a muffled voice [employer] last reviewed this educational content on 09/27/201719995793-3278 The [employer]. [address] [place] [address]. All rights reserved. This information is not intended as a substitute for professional medical care. Always follow your healthcare professional's instructions. IER BLOWER documented in this encounter Progress Notes Jon Marinelli FNP - 03/23/2020 7:00 PM CST Cc: Chief Complaint Patient presents with Fever low grade Cough All symptoms started last night Ondina Hines is a 80 year old female. This is a 80-year-old female presenting to the Urgent Care with a chief complaint of generalized body aches, low grade fever, and minimal cough. Patient states she woke up this morning feeling "under the weather." Patient states she wants to make sure everything is OK since the holidays are here. Patient reports low grade fever of 99.4F. Patient denies difficulty breathing or difficulty swallowing. Patient states her son woke up yesterday with similar symptoms but has since felt back to normal andwith no complaints. The patient denies chest pain, shortness of breath, nausea, vomiting, dizziness, headache, fevers, chills, or any other constitutional symptoms. The patient's past medical history, surgical history, social history, and family history are in the chart and have been reviewed. Allergies Ondina is allergic to codeine and keflex [cephalexin]. Medications Outpatient Medications Prior to Visit Medication Sig Dispense Refill dapagliflozin (FARXIGA) 5 mg tablet Take 1 tablet by mouth daily. 90 tablet 3 diclofenac 50 mg tablet Take 1 tablet by mouth 3 (three) times daily. 90 tablet 3 mirabegron (MYRBETRIQ) 50 mg tablet Take 1 tablet by mouth daily. 90 tablet 3 BYSTOLIC 10 mg tablet TAKE ONE TABLET BY MOUTH EVERY DAY 90 tablet 3 DILTIAZEM 180 mg 24 hr capsule TAKE ONE CAPSULE BY MOUTH EVERY DAY 90 capsule 3 ESCITALOPRAM OXALATE 10 mg tablet TAKE ONE TABLET BY MOUTH EVERY DAY 90 tablet 3 HYDROCHLOROTHIAZIDE 12.5 mg capsule TAKE ONE CAPSULE BY MOUTH EVERY DAY 90 capsule 3 PRAVASTATIN 20 mg tablet TAKE ONE TABLET BY MOUTH EVERY DAY AT BEDTIME 90 tablet 3 ergocalciferol, vitamin d2, (VITAMIN D2) 1,250 mcg (50,000 unit) capsule Take 1 capsule by mouthweekly. 12 capsule 1 CYCLOSPORINE (RESTASIS OPHTHALMIC) Place in each eye. fluconazole 150 mg tablet Take one tablet now for yeast infection, and in 72 hours take a secondpill. Repeat this for 2 weeks. 6 tablet 0 lisinopril (PRINIVIL) 5 mg tablet Take 1 tablet by mouth daily. 90 tablet 3 Diclofenac Sodium (VOLTAREN) 1 % gel Take 2-4 grams three times a day as needed for pain 100 g 3 cholecalciferol, vitamin D3, (VITAMIN D3) 1,000 unit tablet Take 1,000 Units by mouth daily. cyanocobalamin/cobamamide (B12 SL) Place under the tongue. Extended release ipratropium 0.03 % nasal spray Use 2 Sprays in each nostril 3 (three) times daily. 30 mL 3 multivitamin tablet Take 1 tablet by mouth daily. sennosides (SENOKOT ORAL) Take by mouth. blood sugar diagnostic strip Use TID, DX E11.9 (Brand upon insurance approval) 100 Box 11 Blood-Glucose Meter (BLOOD GLUCOSE MONITORING) Kit Use TID, DX E11.9 (Brand upon insurance approval) 1 Each 0 lancets-blood glucose strips 30 gauge Cmpk 1 Each 3 (three) times daily. DX E11.9 (Brand upon insurance approval) 100 Each 11 Walker (ULTRA-LIGHT ROLLATOR) Misc Use as directed 1 Each 0 CALCIUM CITRATE/VITAMIN D3 (CALCIUM CITRATE + D ORAL) Take by mouth. Facility-Administered Medications Prior to Visit Medication Dose Route Frequency Provider Last Rate Last Admin clindamycin in d5w (CLEOCIN) 600 mg/50 mL Piggyback 600 mg 600 mg IV Piggyback O.R. HOLDING ONCE Tasia Cao FNP Histories Past Medical History: Diagnosis Date History of breast cancer Osteoarthritis involving multiple joints on both sides of body Osteoporosis Type 2 diabetes mellitus without complication, without long-term current use of insulin Past Surgical History: Procedure Laterality Date BREAST LUMPECTOMY Right 09/23/2018 Surgeon: Humera Coates MD; [place] [facility] [place] Social History Socioeconomic History Marital status: Spouse name: Not on file Number of children: Not on file Years of education: Not on file Highest education level: Not on file Occupational History Not on file Social Needs Financial resource strain: Not on file Food insecurity Worry: Not on file Inability: Not on file Transportation needs Medical: Not on file Non-medical: Not on file Tobacco Use Smoking status: Never Smoker Smokeless tobacco: Never Used Substance and Sexual Activity Alcohol use: No Drug use: No Sexual activity: Never Lifestyle Physical activity Days per week: Not on file Minutes per session: Not on file Stress: Not on file Relationships Social connections Talks on phone: Not on file Gets together: Not on file Attends episcopalian service: Not on file Active member of club or organization: Not on file Attends meetings of clubs or organizations: Not on file Relationship status: Not on file Intimate partner violence Fear of current or ex partner: Not on file Emotionally abused: Not on file Physically abused: Not on file Forced sexual activity: Not on file Other Topics Concern Not on file Social History Narrative Not on file No family history on file. Review of Systems Constitutional: Positive for fever. Negative for chills. HENT: Negative for ear discharge, ear pain, sinus pressure, sore throat and trouble swallowing. Eyes: Negative for redness and itching. Respiratory: Negative for cough, shortness of breath and wheezing. Cardiovascular: Negative for chest pain. Gastrointestinal: Negative for diarrhea, nausea and vomiting. Skin: Negative for color change, pallor and rash. Neurological: Negative for dizziness and headaches. Vital Signs BP (!) 148/81 | Pulse 68 | Temp 37.2 C (99 F) | Resp 18 | Ht 5' 4" (1.626 m) | Wt 185 lb (83.9 kg) | SpO2 96% | BMI 31.76 kg/m Physical Exam Vitals signs and nursing note reviewed. Constitutional: General: She is not in acute distress. Appearance: Normal appearance. She is normal weight. She is not ill- appearing, toxic-appearing ordiaphoretic. HENT: Head: Normocephalic. Right Ear: Tympanic membrane, ear canal and external ear normal. There is no impacted cerumen. Left Ear: Tympanic membrane, ear canal and external ear normal. There is no impacted cerumen. Nose: Nose normal. No congestion or rhinorrhea. Mouth/Throat: Mouth: Mucous membranes are moist. Pharynx: Oropharynx is clear. No oropharyngeal exudate or posterior oropharyngeal erythema. Eyes: General: No scleral icterus. Right eye: No discharge. Left eye: No discharge. Extraocular Movements: Extraocular movements intact. Conjunctiva/sclera: Conjunctivae normal. Pupils: Pupils are equal, round, and reactive to light. Neck: Musculoskeletal: Normal range of motion. No neck rigidity. Trachea: Trachea normal. Cardiovascular: Rate and Rhythm: Normal rate and regular rhythm. Pulses: Normal pulses. Heart sounds: Normal heart sounds. Pulmonary: Effort: Pulmonary effort is normal. No respiratory distress. Breath sounds: Normal breath sounds and air entry. No decreased air movement. No decreased breathsounds or wheezing. Lymphadenopathy: Cervical: No cervical adenopathy. Skin: General: Skin is warm. Capillary Refill: Capillary refill takes less than 2 seconds. Neurological: General: No focal deficit present. Mental Status: She is alert and oriented to person, place, and time. Mental status is at baseline. Psychiatric: Mood and Affect: Mood normal. Behavior: Behavior normal. Thought Content: Thought content normal. Judgment: Judgment normal. Assessment/Plan Based on the patient's HPI and physical exam, I have diagnosed them with a viral upper respiratory infection vs. COVID. COVID PCR obtained. The patient has been provided with educational material regarding the prevention of viral URIs, including: good and washing, avoiding exposure to infected individuals, adequate rest, and stress management. The patient has been provided with educational material regarding the non- pharmacological managementof viral URIs, including: increased rest, fluids, humidify inspired air, discontinue tobacco products and/or exposure, and hard candy or lozenges for scratchy throat. The patient may utilize over the counter medications, including; antihistamines to dry nasal secretions, as well as topical decongestants to reduce edema in the nasal passages and promote drainage. Thepatient may use antipyretics for fever control. The patient has been instructed to return to the Urgent Care or Emergency Center for worsening symptoms, including: fevers, chills, nausea, vomiting, chest pain, shortness of breath, or severe sore throat. The patient is to follow-up with their PCP for continued care. The patient and I are in full agreement of the diagnosis and plan of care with no further questions. This visit did not involve counseling and coordination that comprised more than 50% of the visit time. Sindy Barber MA - 03/23/2020 7:00 PM CST Ondina Hines is a 80 year old female Chief Complaint Patient presents with Fever low grade Cough All symptoms started last night Vitals: 03/23/20 1846 03/23/20 1848 BP: (!) 170/80 (!) 148/81 Pulse: 68 Resp: 18 Temp: 37.2 C (99 F) SpO2: 96% Weight: 185 lb (83.9 kg) Height: 5' 4" (1.626 m) [facility] BALDO [facility] - [id number] All Vitals taken, allergies and all medications reviewed, fall risk assessed. Pain level 0. Patient educated on plan of care for visit, swabbing technique, risks and benefits of test and length of time to receive results. Verbal consent obtained to perform test. CDC Fact Sheet for Patients nCoV Diagnostic Panel dated 07/12/2019 provided. Bilate nares swabbed during COVID19 nasopharyngeal swab. Sindy Castano MA 03/23/2020 6:53 PM IER BLOWER documented in this encounter Plan of Treatment Name Type Priority Associated Diagnoses Order S chedule COVID-19 (MOLECULAR LAB Routine Exposure to Expected : 03/23/2020, TESTING SARS-associated Expires: 021 NUCLEIC ACID coronavirus AMPLIFICATION) Health Maintenance Due Date Last Done Comments DTaP,Tdap,and Td Vaccines 02/12/1960 (1 - Tdap) Zoster Recombinant Vaccine 1991 (SHINGRIX) (1 of 2) Medicare Wellness Visit 2006 EYE EXAM 03/04/2019 03/04/2018 FOOT EXAM 04/28/2019 04/28/2018, 04/28/2018 URINE MICROALBUMIN 04/28/2019 04/28/2018 INFLUENZA VACCINE (#1) 2020 02/06/2019, 02/24/2018 Po stponed from 12/29/2019 (Nadya ent Ill Today) Depression Screening 04/14/2020 04/14/2019 HgA1C 05/13/2020 11/11/2019, 11/06/2018, 04/28/2018, Additional history exists CREATININE (SERUM) 11/10/2020 11/11/2019, 11/07/2018, 02/25/2018, Additional history exists LDL-C 11/10/2020 11/11/2019, 12/16/2017, 10/29/2016 Osteoporosis Screening 10/06/2025 10/07/2015 PNEUMOCOCCAL VACCINES 65+ Completed 11/06/2018 documented as of this encounter Results Not on filedocumented in this encounter Visit Diagnoses Diagnosis Viral URI - Primary Acute upper respiratory infections of un specified site Exposure to SARS-associated coronavirus documented in this encounter Additional Health Concerns Infection Onset Date Last Indicated Resolved Time COVID-19 Rule Out 03/23/2020 03/23/2020 documented as of this encounter Insurance Payer Benefit Plan / Subscriber ID Effective Dates Phone Addre ss Type Group MEDICARE MEDICARE PART [id number] 2006-[place] [phone] Medicare [place] B [place] [id number] [place] [id number] [place] [id number] 2011-[place] field nt documented as of this encounter
[2020-03-26] MEDS ORDERED: FENTANYL CITR 100 MCG/2 ML ONE (02:44)
[2020-03-26] MEDS ORDERED: NA CHLORIDE 0.9% 0 ML ONE (02:44)
[2020-03-26] MEDS ORDERED: ONDANSETRON 4 MG/2 ML VIAL ONE (02:44)
[2020-03-26 03:01] LABS: Absolute Lymphocytes (CBC) 0.9 K/uL (0.7-4.9); Basophils % 0.8 % (0-1.3); Hematocrit 46.6 % (36.0-45.0); Lymphocytes % 16.1 % (15.3-44.8); MPV 8.8 fL (7.6-11.3); RBC Red Blood Cell Count 5.24 M/uL (3.86-4.86)
[2020-03-26 03:03] LABS: Protime INR 1.03
[2020-03-26 03:27] LABS: ALT/SGPT 42 U/L (12-78); AST/SGOT 36 U/L (15-37); Albumin 3.7 g/dL (3.4-5.0); Alkaline Phosphatase 62 U/L (45-117); BUN Blood Urea Nitrogen 21 mg/dL (7-18); Bicarbonate 30 mmol/L (21-32); Bilirubin Direct 0.2 mg/dL (0-0.2); Bilirubin Total 0.4 mg/dL (0.2-1.0); Glucose Level 200 mg/dL (74-106); Magnesium 2.5 mg/dL (1.8-2.4); NT PRO-BNP 86 pg/mL (<450); Protein, Total 7.1 g/dL (6.4-8.2); Sodium Level 142 mmol/L (136-145); Troponin (Emerg Dept Use Only) < 0.02 ng/mL (0.0-0.045)
[2020-03-26 03:38] LABS: Potassium 2.9 mmol/L (3.5-5.1)
--- NOTE | 2020-03-26 03:58 | EDPHYS ---
Physician Documentation [facility] Name: Ondina Hines Age: 80 yrs Sex: Female : 1940 Arrival Date: 03/26/2020 Time: : Bed 2 Private MD: ED Physician Emre Kothari HPI: 03/26 01:57 This 80 yrs old Female presents to ER via EMS with complaints of Fall Injury. mae 01:57 Details of fall: The patient fell from an upright position, while walking. Onset: The mae symptoms/episode began/occurred just prior to arrival. Associated injuries: The patient sustained injury to the head, neck injury, right femoral area and right hip, decreased range of motion, painful injury. Severity of symptoms: At their worst the symptoms were moderate, in the emergency department the symptoms have improved. The patient has not experienced similar symptoms in the past. Historical: - Allergies: 01:35 Codeine; rv 01:35 Keflex; rv - PMHx: 01:35 Arthritis; Depression; Hypertension; rv - PSHx: 01:35 None; rv - Immunization history:: Adult Immunizations up to date, Last tetanus immunization: up to date. - Social history:: Smoking status: Patient denies any tobacco usage or history of. - Family history:: not pertinent. ROS: 01:57 Constitutional: Negative for fever, chills, and weight loss, Eyes: Negative for injury, mae pain, redness, and discharge, ENT: Negative for injury, pain, and discharge, Neck: Negative for injury, pain, and swelling, Cardiovascular: Negative for chest pain, palpitations, and edema, Respiratory: Negative for shortness of breath, cough, wheezing, and pleuritic chest pain, Abdomen/GI: Negative for abdominal pain, nausea, vomiting, diarrhea, and constipation, Back: Negative for injury and pain, : Negative for injury, bleeding, discharge, and swelling, Skin: Negative for injury, rash, and discoloration, Neuro: Negative for headache, weakness, numbness, tingling, and seizure, Psych: Negative for depression, anxiety, suicide ideation, homicidal ideation, and hallucinations, Allergy/Immunology: Negative for hives, rash, and allergies, Endocrine: Negative for neck swelling, polydipsia, polyuria, polyphagia, and marked weight changes. 01:57 MS/extremity: Positive for decreased range of motion, pain, swelling, tenderness, of the right femoral area and right hip. Exam: 01:57 Constitutional: This is a well developed, well nourished patient who is awake, alert, mae and in no acute distress. Head/Face: Normocephalic, atraumatic. Eyes: Pupils equal round and reactive to light, extra-ocular motions intact. Lids and lashes normal. Conjunctiva and sclera are non-icteric and not injected. Cornea within normal limits. Periorbital areas with no swelling, redness, or edema. ENT: Nares patent. No nasal discharge, no septal abnormalities noted. Tympanic membranes are normal and external auditory canals are clear. Oropharynx with no redness, swelling, or masses, exudates, or evidence of obstruction, uvula midline. Mucous membranes moist. Neck: Trachea midline, no thyromegaly or masses palpated, and no cervical lymphadenopathy. Supple, full range of motion without nuchal rigidity, or vertebral point tenderness. No Meningismus. Chest/axilla: Normal chest wall appearance and motion. Nontender with no deformity. No lesions are appreciated. Cardiovascular: Regular rate and rhythm with a normal S1 and S2. No gallops, murmurs, or rubs. Normal PMI, no JVD. No pulse deficits. Respiratory: Lungs have equal breath sounds bilaterally, clear to auscultation and percussion. No rales, rhonchi or wheezes noted. No increased work of breathing, no retractions or nasal flaring. Abdomen/GI: Soft, non-tender, with normal bowel sounds. No distension or tympany. No guarding or rebound. No evidence of tenderness throughout. Back: No spinal tenderness. No costovertebral tenderness. Full range of motion. Female : Normal external genitalia. Skin: Warm, dry with normal turgor. Normal color with no rashes, no lesions, and no evidence of cellulitis. Neuro: Awake and alert, GCS 15, oriented to person, place, time, and situation. Cranial nerves II-XII grossly intact. Motor strength 5/5 in all extremities. Sensory grossly intact. Cerebellar exam normal. Normal gait. Psych: Awake, alert, with orientation to person, place and time. Behavior, mood, and affect are within normal limits. 01:57 Musculoskeletal/extremity: Extremities: noted in the right femoral area and right hip: decreased ROM, pain, ROM: limited active range of motion, limited passive range of motion, Circulation is intact in all extremities. Sensation intact. Compartment Syndrome exam of affected extremity: is normal. DVT Exam: No signs of deep vein thrombosis. no swelling, negative Homans' sign noted on exam, no appreciated bluish discoloration, no erythema, no increased warmth, pain, tenderness, that is mild, of the right leg, of the right hip. Vital Signs: 01:28 BP 148 / 68; Pulse 62; Resp 16; Temp 98.5; Pulse Ox 99% ; Weight 83.46 kg; Height 5 ft. rv 4 in. (162.56 cm); Pain 2/10; 02:45 BP 128 / 46; Pulse 54; Resp 16; Pulse Ox 100% on R/A; jb4 04:00 BP 153 / 52; Pulse 54; Resp 16; Pulse Ox 100% on R/A; jb4 05:42 BP 138 / 56; Pulse 59; Resp 16; Pulse Ox 97% on R/A; jb4 06:30 BP 151 / 62; Pulse 57; Resp 16; Pulse Ox 95% on R/A; jb4 07:34 BP 146 / 57; Pulse 56; Resp 14; Pulse Ox 98% on R/A; tw2 01:28 Body Mass Index 31.58 (83.46 kg, 162.56 cm) rv [place] Coma Score: 02:30 Eye Response: spontaneous(4). Verbal Response: oriented(5). Motor Response: obeys jb4 commands(6). Total: 15. 05:42 Eye Response: spontaneous(4). Verbal Response: oriented(5). Motor Response: obeys jb4 commands(6). Total: 15. 06:30 Eye Response: spontaneous(4). Verbal Response: oriented(5). Motor Response: obeys jb4 commands(6). Total: 15. 07:34 Eye Response: spontaneous(4). Verbal Response: oriented(5). Motor Response: obeys tw2 commands(6). Total: 15. Trauma Score (Adult): 02:30 Eye Response: spontaneous(1); Verbal Response: oriented(1); Motor Response: obeys jb4 commands(2); Systolic BP: > 89 mm Hg(4); Respiratory Rate: 10 to 29 per min(4); Ruben Score: 15; Trauma Score: 12 04:00 Eye Response: spontaneous(1); Verbal Response: oriented(1); Motor Response: obeys jb4 commands(2); Systolic BP: > 89 mm Hg(4); Respiratory Rate: 10 to 29 per min(4); [place] Score: 15; Trauma Score: 12 04:00 Eye Response: spontaneous(1); Verbal Response: oriented(1); Motor Response: obeys jb4 commands(2); Systolic BP: > 89 mm Hg(4); Respiratory Rate: 10 to 29 per min(4); [place] Score: 15; Trauma Score: 12 05:42 Eye Response: spontaneous(1); Verbal Response: oriented(1); Motor Response: obeys jb4 commands(2); Systolic BP: > 89 mm Hg(4); Respiratory Rate: 10 to 29 per min(4); [place] Score: 15; Trauma Score: 12 06:30 Eye Response: spontaneous(1); Verbal Response: oriented(1); Motor Response: obeys jb4 commands(2); Systolic BP: > 89 mm Hg(4); Respiratory Rate: 10 to 29 per min(4); Ruben Score: 15; Trauma Score: 12 07:34 Eye Response: spontaneous(1); Verbal Response: oriented(1); Motor Response: obeys tw2 commands(2); Systolic BP: > 89 mm Hg(4); Respiratory Rate: 10 to 29 per min(4); [place] Score: 15; Trauma Score: 12 MDM: 01:32 Patient medically screened. [facility] 02:00 Differential diagnosis: abrasion, closed head injury, contusion, fracture, multiple mae trauma, sprain, strain. Data reviewed: vital signs, nurses notes, lab test result(s), EKG, radiologic studies, CT scan, plain films. Data interpreted: site monitor: rate is 62 beats/min, rhythm is regular, Pulse oximetry: on room air is 62 %. Test interpretation: by ED physician or midlevel provider: ECG, plain radiologic studies. Counseling: I had a detailed discussion with the patient and/or guardian regarding: the historical points, exam findings, and any diagnostic results supporting the discharge/admit diagnosis, lab results, radiology results, the need for further work-up and treatment in the hospital. 03/26 01:57 Order name: Basic Metabolic Panel; Complete Time: 03:42 [facility] 03/26 01:57 Order name: CBC with Diff; Complete Time: 03:38 [facility] 03/26 01:57 Order name: LFT's; Complete Time: 03:42 [facility] 03/26 01:57 Order name: Magnesium; Complete Time: 03:42 [facility] 03/26 01:57 Order name: NT PRO-BNP; Complete Time: 03:42 [facility] 03/26 01:57 Order name: PT-INR; Complete Time: 03:38 [facility] 03/26 01:57 Order name: Troponin (emerg Dept Use Only); Complete Time: 03:42 [facility] 03/26 01:57 Order name: XRAY Chest (1 view) [facility] 03/26 01:57 Order name: CT Head C Spine [facility] 03/26 01:57 Order name: Pelvis XRAY [facility] 03/26 01:57 Order name: Hip Right 2 View XRAY [facility] 03/26 01:57 Order name: Femur Right XRAY [facility] 03/26 03:47 Order name: CT Chest, Abdomen, Pelvis - W/Contrast [facility] 03/26 04:44 Order name: Wrist Right 3 View XRAY [facility] 03/26 01:57 Order name: EKG; Complete Time: 01:58 [facility] 03/26 01:57 Order name: Cardiac monitoring; Complete Time: 02:22 [facility] 03/26 01:57 Order name: EKG - Nurse/Tech; Complete Time: 02:45 [facility] 03/26 01:57 Order name: IV Saline Lock; Complete Time: 02:59 [facility] 03/26 01:57 Order name: Labs collected and sent; Complete Time: 02:02 [facility] 03/26 01:57 Order name: O2 Per Protocol; Complete Time: 02:02 [facility] 03/26 01:57 Order name: O2 Sat Monitoring; Complete Time: 02:01 [facility] 03/26 04:07 Order name: Gonzalez; Complete Time: 04:32 [facility] 03/26 04:44 Order name: Wound Care: clean and dress, right elbow; Complete Time: 05:15 [facility] Administered Medications: 02:55 Drug: Zofran (Ondansetron) 4 mg Route: IVP; Site: right antecubital; jb4 03:25 Follow up: Response: No adverse reaction jb4 02:58 Drug: fentaNYL (PF) 25 mcg Route: IVP; Site: right antecubital; jb4 03:28 Follow up: Response: No adverse reaction; Pain is decreased; RASS: Alert and Calm (0) jb4 03:42 Not Given (Duplicate Order): NS 0.9% 1000 ml IV at 125 ml/hr continuous mae 04:04 Drug: Potassium Effervescent Tablet 25 mEq Route: PO; jb4 04:30 Follow up: Response: No adverse reaction jb4 04:04 Drug: NS 0.9% with KCl 20 mEq/L 1000 ml Route: IV; Rate: 125 ml/hr; Site: right jb4 antecubital; 08:22 Follow up: IV Status: Infusion continued upon admission tw2 05:15 Not Given (Other Intervention Used): Bactroban Ointment 2 % 1 application Topical once jb4 Disposition: 03/26/20 03:57 Hospitalization ordered by Murray Moura for Inpatient Admission. Preliminary diagnosis are Fall due to bumping against object, Superficial injury of head, Fracture of other parts of pelvis - right superior and inferior pubic ramus fracture, Hypokalemia, Other fracture of sacrum - nondisplaced left sacral ala,stable. - Bed requested for Telemetry/MedSurg (Inpatient). - Status is Inpatient Admission. tw2 - Condition is Stable. - Problem is new. - Symptoms have improved. Signatures: Dispatcher [employer] EDMS Anel Michaud RN RN Toy Storey RN RN sg Anderson, Corey, MD MD cha Wise, Tara, RN RN tw2 Paul Leonard RN RN jb4 Lionel Daniel RN RN rv Corrections: (The following items were deleted from the chart) 05:15 03:57 Hospitalization Ordered by Murray Moura MD for Inpatient Admission. mw Preliminary diagnosis is Fall due to bumping against object; Superficial injury of head; Fracture of other parts of pelvis - right superior and inferior pubic ramus fracture; Hypokalemia. Bed requested for Telemetry/MedSurg (Inpatient). Status is Inpatient Admission. Condition is Stable. Problem is new. Symptoms have improved. mae 06:32 05:15 03/26/2020 03:57 Hospitalization Ordered by Murray Moura MD for Inpatient Admission. Preliminary diagnosis is Fall due to bumping against object; Superficial injury of head; Fracture of other parts of pelvis - right superior and inferior pubic ramus fracture; Hypokalemia. Bed requested for RUST ER HOLD. Status is Inpatient Admission. Condition is Stable. Problem is new. Symptoms have improved. 06:38 06:32 03/26/2020 03:57 Hospitalization Ordered by Murray Moura MD for Inpatient sg Admission. Preliminary diagnosis is Fall due to bumping against object; Superficial injury of head; Fracture of other parts of pelvis - right superior and inferior pubic ramus fracture; Hypokalemia. Bed requested for Telemetry/MedSurg (Inpatient). Status is Inpatient Admission. Condition is Stable. Problem is new. Symptoms have improved. 07:31 06:38 03/26/2020 03:57 Hospitalization Ordered by Murray Moura MD for Inpatient mae Admission. Preliminary diagnosis is Fall due to bumping against object; Superficial injury of head; Fracture of other parts of pelvis - right superior and inferior pubic ramus fracture; Hypokalemia. Bed requested for Telemetry/MedSurg (Inpatient). Status is Inpatient Admission. Condition is Stable. Problem is new. Symptoms have improved. 08:31 07:31 03/26/2020 03:57 Hospitalization Ordered by Murray Moura MD for Inpatient tw2 Admission. Preliminary diagnosis is Fall due to bumping against object; Superficial injury of head; Fracture of other parts of pelvis - right superior and inferior pubic ramus fracture; Hypokalemia; Other fracture of sacrum - nondisplaced left sacral ala,stable. Bed requested for Telemetry/MedSurg (Inpatient). Status is Inpatient Admission. Condition is Stable. Problem is new. Symptoms have improved. mae
--- NOTE | 2020-03-26 03:58 | ER ---
Nurse's Notes [facility] Name: Ondina Hines Age: 80 yrs Sex: Female : 1940 Arrival Date: 03/26/2020 Time: : Bed 2 Private MD: Diagnosis: Fall due to bumping against object;Superficial injury of head;Fracture of other parts of pelvis-right superior and inferior pubic ramus fracture;Hypokalemia;Other fracture of sacrum-nondisplaced left sacral ala,stable Presentation: 03/26 01:28 Chief complaint: Patient states: FALL FROM STANDING, HIT HEAD, LANDED ON HER RIGHT rv SIDE, HURTING HER RIGHT ELBOW, RIGHT UPPER LEG. COULD NOT BEAR WEIGHT ON THE RIGHT LEG. NO LOC. NO BLOOD THINNERS.\E\ EMS states: FALL FROM STANDING, HIT HEAD, LANDED ON HER RIGHT SIDE, HURTING HER RIGHT ELBOW, RIGHT UPPER LEG. COULD NOT BEAR WEIGHT ON THE RIGHT LEG. NO LOC. NO BLOOD THINNERS. Coronavirus screen: Client denies travel out of the [place] in the last 14 days. Ebola Screen: No symptoms or risks identified at this time. Initial Sepsis Screen: Does the patient meet any 2 criteria? No. Patient's initial sepsis screen is negative. Does the patient have a suspected source of infection? No. Patient's initial sepsis screen is negative. Risk Assessment: Do you want to hurt yourself or someone else? Patient reports no desire to harm self or others. Onset of symptoms was March 26, 2020 at 00:30. 01:28 Method Of Arrival: EMS: [facility] rv :28 Acuity: SONAL 3 rv 01:30 Care prior to arrival: None. Mechanism of Injury: Fall from standing position. Trauma jb4 event details: Injury occurred in the [facility]. Historical: - Allergies: 01:35 Codeine; rv 01:35 Keflex; rv - PMHx: 01:35 Arthritis; Depression; Hypertension; rv - PSHx: 01:35 None; rv - Immunization history:: Adult Immunizations up to date, Last tetanus immunization: up to date. - Social history:: Smoking status: Patient denies any tobacco usage or history of. - Family history:: not pertinent. Screenin:45 Abuse screen: Denies threats or abuse. Nutritional screening: No deficits noted. jb4 Tuberculosis screening: No symptoms or risk factors identified. Fall Risk Fall in past 12 months (25 points). Total Martin Fall Scale indicates Low Risk Score (25-44 pts). Fall prevention measures have been instituted. Side Rails Up X 2 Placed close to Nursing Station Frequent Obs/Assesments occuring Family Present and informed to notify staff if they need to leave bedside As available Patient and Family Educated on Fall Prevention Program and strategies. Primary Survey: 01:30 NO uncontrolled hemorrhage observed. A: The patient is alert. Airway: patent, No jb4 supplemental oxygen in use on arrival. Oral cavity: clear, gag reflex present. Breathing/Chest: Respiratory pattern: regular, Respiratory effort: spontaneous, unlabored, Chest inspection: symmetrical rise and fall of the chest. Circulation: Skin color: pink, Skin temperature: warm, dry. Disability Alert. Exposure/Environment: All clothing and personal items were removed. Forensic evidence collection is not deemed to be indicated at this time. Items placed in patient belonging bag. 02:30 Reassessment Airway Airway Patent Oxygen No O2 Oral cavity Clear +Gag reflex jb4 Breathing/Chest Respiratory pattern Regular Respiratory effort Spontaneous Unlabored Chest inspection Symmetrical Asymmetrical Circulation Color Manzano Temperature Warm Dry Disability Alert. Secondary Survey: 01:30 HEENT: No deficits noted. Gastrointestinal: No deficits noted. : No deficits noted. jb4 No signs and/or symptoms were reported regarding the genitourinary system. Musculoskeletal: Circulation, motion, and sensation intact. Range of motion: limited in right hip. Injury Description: Abrasion sustained to right elbow is scabbed. Assessment: 01:30 General: Appears in no apparent distress. uncomfortable, Behavior is calm, cooperative, jb4 appropriate for age. Pain: Complains of pain in right leg Pain does not radiate. Pain currently is 5 out of 10 on a pain scale. Neuro: Level of Consciousness is awake, alert, obeys commands, Oriented to person, place, time, situation. Cardiovascular: Patient's skin is warm and dry. Respiratory: Airway is patent Respiratory effort is even, unlabored, Respiratory pattern is regular, symmetrical. GI: No signs and/or symptoms were reported involving the gastrointestinal system. : No signs and/or symptoms were reported regarding the genitourinary system. EENT: No signs and/or symptoms were reported regarding the EENT system. Derm: Skin is intact, Skin is pink, warm \T\ dry. Musculoskeletal: Circulation, motion, and sensation intact. Range of motion: intact in all extremities. 02:30 Reassessment: Patient appears in no apparent distress at this time. Patient and/or jb4 family updated on plan of care and expected duration. Pain level reassessed. Patient is alert, oriented x 3, equal unlabored respirations, skin warm/dry/pink. 03:30 Reassessment: PT is in CT. jb4 04:30 Reassessment: Patient appears in no apparent distress at this time. Patient and/or jb4 family updated on plan of care and expected duration. Pain level reassessed. Patient is alert, oriented x 3, equal unlabored respirations, skin warm/dry/pink. 05:00 Reassessment: Pt in X-ray. jb4 05:40 Reassessment: Patient appears in no apparent distress at this time. Patient and/or jb4 family updated on plan of care and expected duration. Pain level reassessed. Patient is alert, oriented x 3, equal unlabored respirations, skin warm/dry/pink. PT back from X-ray. 06:30 Reassessment: Patient appears in no apparent distress at this time. Patient and/or jb4 family updated on plan of care and expected duration. Pain level reassessed. Patient is alert, oriented x 3, equal unlabored respirations, skin warm/dry/pink. 07:35 Reassessment: Patient appears in no apparent distress at this time. Patient and/or tw2 family updated on plan of care and expected duration. Pain level reassessed. Patient is alert, oriented x 3, equal unlabored respirations, skin warm/dry/pink. iv noted to RIGHT ac 20 g, NS with KCl 20 mEq/L infusing at 125 ml/hr. Vital Signs: 01:28 BP 148 / 68; Pulse 62; Resp 16; Temp 98.5; Pulse Ox 99% ; Weight 83.46 kg; Height 5 ft. rv 4 in. (162.56 cm); Pain 2/10; 02:45 BP 128 / 46; Pulse 54; Resp 16; Pulse Ox 100% on R/A; jb4 04:00 BP 153 / 52; Pulse 54; Resp 16; Pulse Ox 100% on R/A; jb4 05:42 BP 138 / 56; Pulse 59; Resp 16; Pulse Ox 97% on R/A; jb4 06:30 BP 151 / 62; Pulse 57; Resp 16; Pulse Ox 95% on R/A; jb4 07:34 BP 146 / 57; Pulse 56; Resp 14; Pulse Ox 98% on R/A; tw2 01:28 Body Mass Index 31.58 (83.46 kg, 162.56 cm) rv Papillion Coma Score: 02:30 Eye Response: spontaneous(4). Verbal Response: oriented(5). Motor Response: obeys jb4 commands(6). Total: 15. 05:42 Eye Response: spontaneous(4). Verbal Response: oriented(5). Motor Response: obeys jb4 commands(6). Total: 15. 06:30 Eye Response: spontaneous(4). Verbal Response: oriented(5). Motor Response: obeys jb4 commands(6). Total: 15. 07:34 Eye Response: spontaneous(4). Verbal Response: oriented(5). Motor Response: obeys tw2 commands(6). Total: 15. Trauma Score (Adult): 02:30 Eye Response: spontaneous(1); Verbal Response: oriented(1); Motor Response: obeys jb4 commands(2); Systolic BP: > 89 mm Hg(4); Respiratory Rate: 10 to 29 per min(4); Papillion Score: 15; Trauma Score: 12 04:00 Eye Response: spontaneous(1); Verbal Response: oriented(1); Motor Response: obeys jb4 commands(2); Systolic BP: > 89 mm Hg(4); Respiratory Rate: 10 to 29 per min(4); Ruben Score: 15; Trauma Score: 12 04:00 Eye Response: spontaneous(1); Verbal Response: oriented(1); Motor Response: obeys jb4 commands(2); Systolic BP: > 89 mm Hg(4); Respiratory Rate: 10 to 29 per min(4); Papillion Score: 15; Trauma Score: 12 05:42 Eye Response: spontaneous(1); Verbal Response: oriented(1); Motor Response: obeys jb4 commands(2); Systolic BP: > 89 mm Hg(4); Respiratory Rate: 10 to 29 per min(4); Ruben Score: 15; Trauma Score: 12 06:30 Eye Response: spontaneous(1); Verbal Response: oriented(1); Motor Response: obeys jb4 commands(2); Systolic BP: > 89 mm Hg(4); Respiratory Rate: 10 to 29 per min(4); Ruben Score: 15; Trauma Score: 12 07:34 Eye Response: spontaneous(1); Verbal Response: oriented(1); Motor Response: obeys tw2 commands(2); Systolic BP: > 89 mm Hg(4); Respiratory Rate: 10 to 29 per min(4); Ruben Score: 15; Trauma Score: 12 ED Course: 01:28 Patient arrived in ED. rv 01:30 Patient maintains SpO2 saturation greater than 95% on room air. jb4 01:30 Thermoregulation: warm blanket given to patient. jb4 01:31 Emre Kothari MD is Attending Physician. mae 01:33 Triage completed. rv 01:34 Paul Leonard RN is Primary Nurse. jb4 01:35 Arm band placed on right wrist. Patient placed in the treatment room, on a stretcher, rv Patient notified of wait time. 01:45 Patient has correct armband on for positive identification. Bed in low position. Call jb4 light in reach. Side rails up X 1. Pulse ox on. NIBP on. 03:14 CT Head C Spine In Process Unspecified. EDMS 03:46 XRAY Chest (1 view) In Process Unspecified. EDMS 03:46 Pelvis XRAY In Process Unspecified. EDMS 03:46 Hip Right 2 View XRAY In Process Unspecified. EDMS 03:46 Femur Right XRAY In Process Unspecified. EDMS 03:54 Murray Moura MD is Hospitalizing Provider. mae 04:32 Gonzalez cath inserted, using sterile technique, Patient tolerated well. oe 05:48 No provider procedures requiring assistance completed. Patient admitted, IV remains in jb4 place. 07:39 Awaiting: unsuccessful attempt to call report at this time. tw2 07:53 Report given to KARENA Bryant. tw2 Administered Medications: 02:55 Drug: Zofran (Ondansetron) 4 mg Route: IVP; Site: right antecubital; jb4 03:25 Follow up: Response: No adverse reaction jb4 02:58 Drug: fentaNYL (PF) 25 mcg Route: IVP; Site: right antecubital; jb4 03:28 Follow up: Response: No adverse reaction; Pain is decreased; RASS: Alert and Calm (0) jb4 03:42 Not Given (Duplicate Order): NS 0.9% 1000 ml IV at 125 ml/hr continuous mae 04:04 Drug: Potassium Effervescent Tablet 25 mEq Route: PO; jb4 04:30 Follow up: Response: No adverse reaction jb4 04:04 Drug: NS 0.9% with KCl 20 mEq/L 1000 ml Route: IV; Rate: 125 ml/hr; Site: right jb4 antecubital; 08:22 Follow up: IV Status: Infusion continued upon admission tw2 05:15 Not Given (Other Intervention Used): Bactroban Ointment 2 % 1 application Topical once jb4 Output: 02:30 Urine: 300ml (Voided); Total: 300ml. jb4 08:00 Urine: 600ml (Gonzalez); Total: 900ml. tw2 Outcome: 03:57 Decision to Hospitalize by Provider. mae 05:48 Admitted to ER Hold. Please see [facility] for further documentation. jb4 05:48 Condition: stable 05:48 Discharge instructions given to patient, Instructed on the need for admit, Demonstrated understanding of instructions. 05:48 Patient's length of stay in the Emergency Department was greater than 2 hours. PT jb4 admitted to ER holdPatient's length of stay extended due to 08:31 Patient left the ED. tw2 Signatures: Dispatcher [employer] EDMS Emre Kothari MD MD cha Wise, Tara, RN RN tw2 Paul Leonard RN RN jb4 August Torres Ronaldo, RN RN rv Corrections: (The following items were deleted from the chart) 02:59 02:58 Zofran (Ondansetron) 4 mg IVP in right antecubital jb4 jb4 06:52 05:30 Reassessment: Patient appears in no apparent distress at this time. Patient jb4 and/or family updated on plan of care and expected duration. Pain level reassessed. Patient is alert, oriented x 3, equal unlabored respirations, skin warm/dry/pink. jb4 06:52 05:15 Reassessment: Pt in X-ray jb4 jb4 07:46 07:35 Reassessment: Patient appears in no apparent distress at this time. Patient tw2 and/or family updated on plan of care and expected duration. Pain level reassessed. Patient is alert, oriented x 3, equal unlabored respirations, skin warm/dry/pink. tw2
[2020-03-26] MEDS ORDERED: NS KCL 20MEQ 1,000 ML IV ONE (04:08)
[2020-03-26] MEDS ORDERED: POTASSIUM 25 MEQ EFFERV TAB ONE (04:08)
--- NOTE | 2020-03-26 05:01 | P.HP ---
Certification for Inpatient Patient admitted to: Inpatient With expected LOS: >2 Midnights Patient will require the following post-hospital care: Rehabilitation Practitioner: I am a practitioner with admitting privileges, knowledge of patient current condition, hospital course, and medical plan of care. Services: Services provided to patient in accordance with Admission requirements found in Title 42 Section 412.3 of the Code of Federal Regulations <Logan Sarkar - Last Filed: 03/26/20 04:55> Patient History Date of Service: 03/26/20 Primary Care Provider: OOT Reason for admission: Pubic ramus fracture, intractable pain History of Present Illness: This is a 80 y/o F with history of Hypertension, NIDDM, Hyperlipidemia, Depression, and arthritis that present to ED via EMS after sustaining accidental mechanical fall injury at her house early this AM. Stated that she was going to the bathroom and tripped on rug causing her to fall on right side hitting her head, neck, buttock, right elbow, and right wrist. Denied LOC. Patient worked up in the ED and found to have superior and inferior right pubic ramus fracture. Labs remarkable for potassium of 2.9. Otherwise stable and without any other acute findings. Patient in moderate pain upon motion and cannot ambulate or get out of bed secondary to pain from fracture. Medicine consulted at that time for admission. Home medications list reviewed: Yes - Past Medical/Surgical History Diabetic: Yes - Social History Smoking Status: Never smoker Smoking therapy provided: No Alcohol use: No CD- Drugs: No Caffeine use: No Place of Residence: Home <Logan Sarkar - Last Filed: 03/26/20 04:55> Date of Service: 03/30/20 - Past Medical/Surgical History Past Surgical History: Unable to obtain <Neftali Baker - Last Filed: 03/30/20 10:44> Allergies propoxyphene HCl [From Darvon] Allergy (Mild, Verified 03/26/20 09:42) Nausea/Vomiting codeine Allergy (Verified 03/26/20 09:42) Nausea/Vomiting cephalexin [From Keflex] Adverse Reaction (Verified 03/26/20 09:42) Itching Home Medications: Cyclosporine [Restasis] 2 drop EACH EYE BID 03/26/20 Dapagliflozin Propanediol [Farxiga] 5 mg PO DAILY 03/26/20 Diclofenac Potassium [Zipsor] 25 mg PO BEDTIME 03/26/20 Ergocalciferol (Vitamin D2) [Vitamin D2] 50 mcg PO EVERY 7TH DAY 03/26/20 Escitalopram Oxalate [Lexapro] 10 mg PO DAILY 03/26/20 Mirabegron [Myrbetriq] 50 mg PO DAILY 03/26/20 Pravastatin Sodium 20 mg PO BEDTIME 03/26/20 Sennosides/Docusate Sodium [Senokot-S Tablet] 1 each PO SEECOM 03/26/20 Albuterol Inhaler [Ventolin Inhaler*] 2 puff IH Q6H PRN #1 hfa.aer.ad 03/29/20 Nebivolol HCl [Bystolic] 5 mg PO DAILY #30 tab 03/29/20 dilTIAZem HCL [Diltiazem 24Hr ER (Xr)] 120 mg PO DAILY #30 cap.er.deg 03/29/20 hydroCHLOROthiazide [Hydrochlorothiazide*] 12.5 mg PO DAILY #30 cap 03/29/20 predniSONE [Deltasone] 20 mg PO BID #12 tab 03/29/20 Review of Systems General: Unremarkable Eyes: Unremarkable ENT: Unremarkable Respiratory: Unremarkable Cardiovascular: Unremarkable Gastrointestinal: Unremarkable Musculoskeletal: As per HPI Integumentary: Unremarkable Neurological: Unremarkable Lymphatics: Unremarkable <Logan Sarkar - Last Filed: 03/26/20 04:55> Physical Examination - Vital Signs Temperature: 98.5 F Blood Pressure: 148/68 Pulse: 62 Respirations: 16 Pulse Ox (%): 100 (RA) - Physical Exam General: Alert, In no apparent distress, Oriented x3, Cooperative HEENT: Normocephalic, PERRLA, Mucous membr. moist/pink, EOMI Neck: Supple, 2+ carotid pulse no bruit, JVD not distended, No Thyromegaly Respiratory: Clear to auscultation bilaterally, Normal air movement Cardiovascular: No edema, Normal pulses, Regular rate/rhythm, Normal S1 S2, No gallops, No rubs, No murmurs Capillary refill: <2 Seconds Gastrointestinal: Normal bowel sounds, Soft and benign, Non-distended, No ascites, No tenderness, No masses, No rebound, No guarding, Other (obese ) Musculoskeletal: No clubbing, No swelling, No contractures, No erythema, No warmth, Tenderness (moderate pain and tenderness to right inguinal and right hip region. Mild tenderness to right wrist ) Integumentary: No rashes, No breakdown, No significant lesion, No tenderness/swelling, No erythema, No warmth, No cyanosis Neurological: Normal speech, Normal strength at 5/5 x4 extr, Normal tone, Sensation intact, Cranial nerves 3-12 intact, Normal affect Lymphatics: No axilla or inguinal lymphadenopathy - Studies Laboratory Data (last 24 hrs) 03/26/20 02:50: PT 12.1, INR 1.03 03/26/20 02:50: WBC 5.4, Hgb 15.7 H, Hct 46.6 H, Plt Count 147 L 03/26/20 02:50: Sodium 142, Potassium 2.9 L*, BUN 21 H, Creatinine 0.92, Glucose 200 H, Magnesium 2.5 H, Total Bilirubin 0.4, AST 36, ALT 42, Alkaline Phosphatase 62 <Logan Sarkar - Last Filed: 03/26/20 04:55> Assessment and Plan - Problems (Diagnosis) (1) Hypertension Status: Chronic Qualifiers: Hypertension type: essential hypertension Qualified Code(s): I10 - Essential (primary) hypertension (2) Non-insulin dependent diabetes mellitus Status: Chronic (3) Inferior pubic ramus fracture Status: Acute Qualifiers: Encounter type: initial encounter Fracture type: closed Laterality: right Qualified Code(s): S32.591A - Other specified fracture of right pubis, initial encounter for closed fracture (4) Fracture of superior pubic ramus Status: Acute Qualifiers: Encounter type: initial encounter Fracture type: closed Laterality: right Qualified Code(s): S32.511A - Fracture of superior rim of right pubis, initial encounter for closed fracture (5) Intractable pain Status: Acute Plan: 1. Will monitor patient for hemodynamic stability while in hospital 2. Potassium protocol with replacement for hypokalemia 3. Pain management for pubic ramus fracture 4. Physical therapy consult 5. [employer] consult for anticipation of possible in home rehab vs. SNF 6. BP management for chronic hypertension 7. DVT prophylaxis Discharge Plan: Home Plan to discharge in: Greater than 2 days - Advance Directives Does patient have a Living Will: No Does patient have a Durable POA for Healthcare: No - Code Status/Comfort Care Code Status Assessed: No Critical Care: No Time Spent Managing Pts Care (In Minutes): 70 <Logan Sarkar - Last Filed: 03/26/20 04:55> - Plan plan of care reviewed and agree as noted above by Logan Sarkar. Patient also tested positive for COVID, continue to monitor closely. <Neftali Baker - Last Filed: 03/30/20 10:44>
[2020-03-26] MEDS ORDERED: ONDANSETRON 4 MG/2 ML VIAL IV PRN (06:21)
[2020-03-26] MEDS ORDERED: D50W 25 GM/50 ML SYRINGE IV PRN (06:21)
[2020-03-26] MEDS ORDERED: GLUCAGON 1 MG/VIAL IM PRN (06:21)
[2020-03-26] MEDS ORDERED: ACETAMINOPHEN 500 MG TAB PO PRN (06:21)
[2020-03-26] MEDS: INSULIN -REGULAR HUMAN 50 UNIT/0.5 ML ML SQ SCH ×4 (07:30→20:02)
[2020-03-26] MEDS: MORPHINE 2 MG/ML SYR IV PRN (09:27)
--- NOTE | 2020-03-26 12:28 | RAD REPORT ---
EXAM DESCRIPTION: RAD - Chest Single View - 03/26/2020 3:46 am CLINICAL HISTORY: PAIN Chest pain. COMPARISON: CHEST SINGLE VIEW dated 03/16/2015; Chest Abdomen Pelvis W Cont dated 03/26/2020 FINDINGS: Portable technique limits examination quality. The lungs are grossly clear. The heart is upper limit of normal in size. Old right posterior rib frac tures. IMPRESSION: No acute intrathoracic process suspected.
--- NOTE | 2020-03-26 12:29 | RAD REPORT ---
EXAM DESCRIPTION: RAD - Pelvis - 03/26/2020 3:46 am CLINICAL HISTORY: TRAUMA COMPARISON: No comparisons FINDINGS: Mildly comminuted fracture of the superior and inferior pubic ramus on the right noted. Vishal th hip joints are intact. No dislocation.
--- NOTE | 2020-03-26 12:30 | RAD REPORT ---
EXAM DESCRIPTION: RAD - Femur Right - 03/26/2020 3:46 am CLINICAL HISTORY: PAIN COMPARISON: No comparisons FINDINGS: Mildly comminuted fracture involving the superior and inferior pubic rami on the right not ed. No dislocation evident. Prominent degenerative change right knee.
--- NOTE | 2020-03-26 12:32 | RAD REPORT ---
EXAM DESCRIPTION: RAD - Hip Right 2 View - 03/26/2020 3:46 am CLINICAL HISTORY: PAIN Fall, trauma, pain COMPARISON: Chest Abdomen Pelvis W Cont dated 03/26/2020 FINDINGS: Mildly comminuted fracture of the superior and inferior pubic ramus on the right is noted. No dislocation.
--- NOTE | 2020-03-26 12:36 | RAD REPORT ---
EXAM DESCRIPTION: RAD - Wrist Right 3 View - 03/26/2020 5:16 am CLINICAL HISTORY: PAIN Pain COMPARISON: No comparisons FINDINGS: Diffuse osteopenia is seen. Osteoarthritic changes involve the radiocarpal joint. Subtle cortical irregularity involving the base of the fourth and fifth metacarpal could be subtle fracture s, suggest correlation with point tenderness in this region.
[2020-03-26] MEDS: TRAMADOL 37.5mg/APAP 325mg PER TAB PO PRN (16:20)
[2020-03-26] MEDS: ENOXAPARIN 40 MG/0.4 ML SQ SCH (16:21)
[2020-03-26 16:53] LABS: Urine Appearance CLEAR; Urine Bilirubin NEGATIVE (NEG); Urine Blood NEGATIVE (NEG); Urine Color YELLOW; Urine Glucose 3+ (NEG); Urine Protein TRACE (NEG); Urine Specific Gravity >=1.030 (1.005-1.030); Urine pH 6.5 (5.0-7.0)
[2020-03-26 17:02] LABS: Urine Microscopic Reflex ORDER UMIC
[2020-03-26 17:27] LABS: Urine Bacteria <20 /HPF (<20); Urine RBC NONE SEEN /HPF (NONE SEEN)
[2020-03-26] MEDS ORDERED: POTASSIUM 25 MEQ EFFERV TAB PO ONE (22:13)
[2020-03-27 04:48] LABS: Absolute Lymphocytes (CBC) 1.3 K/uL (0.7-4.9); Basophils % 0.2 % (0-1.3); Hematocrit 43.3 % (36.0-45.0); Lymphocytes % 26.8 % (15.3-44.8); MPV 8.6 fL (7.6-11.3); RBC Red Blood Cell Count 4.89 M/uL (3.86-4.86)
[2020-03-27 05:00] LABS: BUN Blood Urea Nitrogen 16 mg/dL (7-18); Bicarbonate 32 mmol/L (21-32); Glucose Level 130 mg/dL (74-106); Potassium 3.5 mmol/L (3.5-5.1); Sodium Level 141 mmol/L (136-145)
[2020-03-27] MEDS: POTASSIUM CL SA 10 MEQ TAB PO ONE ×2 (05:35→08:34)
[2020-03-27] MEDS: INSULIN -REGULAR HUMAN 50 UNIT/0.5 ML ML SQ SCH ×4 (07:30→20:43)
[2020-03-27] MEDS ORDERED: POTASSIUM CL SA 10 MEQ TAB PO ONE (07:43)
[2020-03-27] MEDS ORDERED: INFLUENZA VACCINE (for 3y+) 0.5 ML DOSE IMVAC ONE (09:00)
[2020-03-27] MEDS: MORPHINE 2 MG/ML SYR IV PRN (09:46)
--- NOTE | 2020-03-27 10:48 | P.PN ---
Subjective Date of Service: 03/27/20 Primary Care Provider: RADHAMES Chief Complaint: Pubic ramus fracture, intractable pain Subjective: Improving (Patient was transfer to the ICU as she tested positive for esteban virus apparently she was having some fever prior to admission feeling fine denies any shortness of breath has some discomfort) Review of Systems Unremarkable Physical Examination - Vital Signs Temperature: 97.5 F Blood Pressure: 149/55 Pulse: 63 Respirations: 17 Pulse Ox (%): 92 - Physical Exam General: Alert, In no apparent distress, Oriented x3 Respiratory: Clear to auscultation bilaterally Cardiovascular: No edema, Regular rate/rhythm, Normal S1 S2 Assessment & Plan - Problems (Diagnosis) (1) Inferior pubic ramus fracture Current Visit: Yes Status: Acute Plan: Patient's pain is controlled start physical therapy Qualifiers: Encounter type: initial encounter Fracture type: closed Laterality: right Qualified Code(s): S32.591A - Other specified fracture of right pubis, initial encounter for closed fracture (2) COVID-19 Current Visit: Yes Status: Acute Plan: Patient tested positive for esteban virus vital signs satisfactory oxygenation satisfactory
[2020-03-27] MEDS: ENOXAPARIN 40 MG/0.4 ML SQ SCH (17:24)
[2020-03-27] MEDS: CYCLOSPORINE EACH EYE SCH (20:53)
[2020-03-27] MEDS ORDERED: HOME MED 1 EA UNK (Pravastatin Sodium [Pravastatin Sodium] 20 MG) PO SCH (21:00)
[2020-03-27] MEDS: TRAMADOL 37.5mg/APAP 325mg PER TAB PO PRN (21:15)
[2020-03-27] MEDS: ATORVASTATIN 10 MG TAB PO SCH (21:15)
[2020-03-27] MEDS: SENOSIDES 8.6 MG TAB PO SCH (21:16)
[2020-03-28] MEDS: TRAMADOL 37.5mg/APAP 325mg PER TAB PO PRN ×2 (04:27→14:10)
[2020-03-28 05:14] LABS: BUN Blood Urea Nitrogen 15 mg/dL (7-18); Bicarbonate 32 mmol/L (21-32); Glucose Level 124 mg/dL (74-106); Potassium 3.6 mmol/L (3.5-5.1); Sodium Level 141 mmol/L (136-145)
[2020-03-28] MEDS: INSULIN -REGULAR HUMAN 50 UNIT/0.5 ML ML SQ SCH ×4 (07:30→21:00)
[2020-03-28] MEDS: CYCLOSPORINE EACH EYE SCH ×2 (09:00→21:00)
[2020-03-28] MEDS ORDERED: POTASSIUM CL SA 10 MEQ TAB PO ONE (09:00)
[2020-03-28] MEDS ORDERED: HOME MED 1 EA UNK (Mirabegron [Myrbetriq] 50 MG) PO SCH (09:00)
[2020-03-28] MEDS ORDERED: DOCUSATE NA/SENNA CONC 1 TAB PO SCH (09:00)
--- NOTE | 2020-03-28 10:31 | RAD REPORT ---
EXAM DESCRIPTION: Chest Abdomen Pelvis W Cont CLINICAL HISTORY: 80 years Female fractured right pelvis;Trauma. TECHNIQUE: CT imaging of the chest, abdomen and pelvis with intravenous contrast administration. Ora l contrast was not utilized for this examination. Sagittal and coronal reconstructed images were perf ormed. The CT study is performed according to ALARA (as low as reasonably achievable) or ALARA/IMAGE GENTLY, with automatic adjustment of mA and/or kV according to patient size. Performed on: 03/26/2020 at 5:13 AM COMPARISON: None FINDINGS: CHEST: Lungs: The lungs are well expanded and are grossly clear. There is minimal bibasilar dependent atelec tasis or fibrosis. There are no pleural effusions. There is no pneumothorax. The central airways are patent. Heart: The heart is mildly enlarged. There is no pericardial effusion. There is no pericardial ef fusion. Mediastinum: The mediastinum is unremarkable. The mediastinal vessels are normal in caliber and con tour. Bones: No acute osseous abnormalities are identified. There are mild degenerative changes of the thor acic spine. There are a couple of old right-sided rib fractures. Soft tissues: No focal soft tissue abnormalities are identified. Lymphadenopathy: No pathologic hilar, mediastinal or axillary lymphadenopathy is identified. ABDOMEN/PELVIS: Liver: The liver is normal in size and configuration. No focal hepatic abnormalities are identified. Liver attenuation is within normal limits. Spleen: The spleen is normal is size, configuration and attenuation. Gallbladder and bile duct: The gallbladder is partially distended and is grossly unremarkable. Ther e is no biliary ductal dilatation. Pancreas: The pancreas is grossly normal in size and configuration. Adrenal Glands: The adrenal glands are normal in size and configuration. Kidneys: The kidneys are normal in size and configuration. There is no evidence of hydronephrosis. Th ere is no evidence of nephrolithiasis. There is an approximately 2 cm left renal cortical cyst. Stomach: The stomach is grossly normal. There is no definite hiatal hernia. Bowel: The bowel gas pattern is non specific and non obstructive. There is a large fecal impaction. Appendix: The appendix is not well visualized on this examination. Free air: There is no evidence of free air. Free fluid: There is no evidence of free fluid. Vasculature: The aorta is normal in caliber and contour. The inferior vena cava is grossly unremarkab le. There are mild atherosclerotic calcifications along the aorta and iliac arteries. Lymphadenopathy: No pathologic lymphadenopathy is identified. Bladder: The bladder is decompressed due to the presence of a Gonzalez catheter. and smooth in contour. Reproductive: The uterus is grossly within normal limits. Bones: There is a mildly comminuted acute displaced fracture through the right inferior pubic ramus a nd right pubic bone. There is also a questionable nondisplaced fracture along the right inferior sacr al ala.There are degenerative changes of the lumbar spine. There are vacuum discs at multiple levels and advanced degenerative disc disease at L4-L5. There is a right paracentral disc osteophyte complex at L5-S1. Soft tissues: No focal soft tissue abnormalities are identified. IMPRESSION: CT CHEST: 1. No evidence of acute intrathoracic disease. There is minimal bibasilar dependent atelectasis and/o r fibrosis. 2. Mild cardiomegaly. CT SCAN ABDOMEN AND PELVIS: 1. Mildly comminuted displaced fracture through the right inferior pubic ramus and right pubic bone. There is also a questionable nondisplaced fracture along the right inferior sacral ala. 2. Fecal impaction. 3. 2 cm left renal cortical cyst. 4. Otherwise, no evidence of acute intra-abdominal or intrapelvic pathology. Electronically signed by: Mirta Boyle DO 03/26/2020 6:29 AM PRICER Due to temporary technical issues with the PACS/Fluency reporting system, reports are being signed by the in house radiologist without review as a courtesy to ensure prompt reporting. The interpreting r adiologist is fully responsible for the content of the report.
--- NOTE | 2020-03-28 10:32 | RAD REPORT ---
EXAM DESCRIPTION: Head C Spine Mpr Wo Con CLINICAL HISTORY: PAIN COMPARISON: None available TECHNIQUE: Axial CT of the head obtained from the skull apex to the skull base without contrast. Axi al CT images of the cervical spine obtained from the skull base through the thoracic inlet. Sagittal and coronal reformatted images available. FINDINGS: CT head: No acute intracranial hemorrhage identified. No mass, mass effect, shift of the midline, abnormal ext ra-axial fluid collection or CT evidence of acute ischemic change identified. Mild enlargement of elizabeth tricular system and sulcal spaces may be related to cerebral atrophy. Scattered areas of hypodensit y in the supratentorial white matter are nonspecific and may represent sequela of chronic small vesse l ischemic change. The visualized paranasal sinuses and the mastoids are clear. No skull fracture identified. Visual ized orbits and globes are unremarkable. Cervical CT: Alignment of the cervical spine is maintained without evidence of subluxation. The atlantoaxial, at lantodental, and occipitoatlantal intervals are preserved. No fracture identified. Vertebral body h eight preserved. Prevertebral soft tissues are unremarkable. Spurring of the atlantodental articulation. [id number] multilevel loss of intervertebral disc h eight with endplate spondylosis, uncovertebral spurring, and facet arthropathy. Visualized skull base is intact. No fracture of the visualized facial bones. Visualized mastoid air c ells and paranasal sinuses are well aerated. Visualized thyroid is unremarkable. No cervical lymphadenopathy. No pneumothorax in the visualized lung apices. Carotid artery atherosclerosis. IMPRESSION: 1. No acute intracranial abnormality. 2. No acute fracture or subluxation of the cervical spine. This exam was performed according to our departmental dose-optimization program, which includes autom ated exposure control, adjustment of the mA and/or kV according to patient size and/or use of iterati ve reconstruction technique. Electronically signed by: Mil Cueto 03/26/2020 3:38 AM LABOR CONCILIATOR Due to temporary technical issues with the PACS/Fluency reporting system, reports are being signed by the in house radiologist without review as a courtesy to ensure prompt reporting. The interpreting r adiologist is fully responsible for the content of the report.
[2020-03-28] MEDS ORDERED: BENZONATATE 100 MG CAP PO PRN (12:35)
[2020-03-28] MEDS: ENOXAPARIN 40 MG/0.4 ML SQ SCH (16:59)
[2020-03-28] MEDS: HYDROCODONE/CHLORPHEN 5 ML/OSYR PO PRN (17:00)
[2020-03-28] MEDS: ATORVASTATIN 10 MG TAB PO SCH (20:43)
[2020-03-28] MEDS: SENOSIDES 8.6 MG TAB PO SCH (21:24)
[2020-03-28 22:20] VITALS: O2SAT 95
[2020-03-29 05:25] LABS: BUN Blood Urea Nitrogen 17 mg/dL (7-18); Bicarbonate 29 mmol/L (21-32); Glucose Level 136 mg/dL (74-106); Potassium 3.5 mmol/L (3.5-5.1); Sodium Level 139 mmol/L (136-145)
[2020-03-29] MEDS: HYDROCODONE/CHLORPHEN 5 ML/OSYR PO PRN (05:33)
[2020-03-29 05:44] VITALS: BP 135/75; TEMP 97.2
[2020-03-29 06:03] VITALS: BMI 32.1
[2020-03-29] MEDS: INSULIN -REGULAR HUMAN 50 UNIT/0.5 ML ML SQ SCH ×2 (07:30→11:30)
[2020-03-29] MEDS ORDERED: POTASSIUM CL SA 10 MEQ TAB PO ONE (08:00)
--- NOTE | 2020-03-29 08:30 | P.PN ---
Subjective Date of Service: 03/28/20 Patient is not really participating well with physical therapy. Patient is having a significant degree of pain. Patient will need chcf facility placement. Review of Systems 10-point ROS is otherwise unremarkable Physical Examination - Vital Signs Temperature: 97.2 F Blood Pressure: 135/75 Pulse: 73 Respirations: 23 Pulse Ox (%): 94 - Physical Exam General: Alert, In no apparent distress, Oriented x3 Respiratory: Clear to auscultation bilaterally, Normal air movement Cardiovascular: Regular rate/rhythm, Normal S1 S2, No murmurs Gastrointestinal: Normal bowel sounds, Soft and benign, Non-distended, No tenderness Musculoskeletal: No tenderness Integumentary: No rashes Neurological: Sensation intact, Cranial nerves 3-12 intact, Abnormal strength - Studies Medications List Reviewed: Yes Assessment & Plan - Problems (Diagnosis) (1) COVID-19 Current Visit: Yes Status: Acute (2) Fracture of superior pubic ramus Current Visit: Yes Status: Acute Qualifiers: Encounter type: initial encounter Fracture type: closed Laterality: right Qualified Code(s): S32.511A - Fracture of superior rim of right pubis, initial encounter for closed fracture (3) Inferior pubic ramus fracture Current Visit: Yes Status: Acute Qualifiers: Encounter type: initial encounter Fracture type: closed Laterality: right Qualified Code(s): S32.591A - Other specified fracture of right pubis, initial encounter for closed fracture (4) Intractable pain Current Visit: Yes Status: Acute (5) Hypertension Current Visit: Yes Status: Chronic Qualifiers: Hypertension type: essential hypertension Qualified Code(s): I10 - Essential (primary) hypertension (6) Non-insulin dependent diabetes mellitus Current Visit: Yes Status: Chronic - Plan Plan: 1. Continue with pain control 2. Continue with physical therapy 3. Patient will need continued therapy at discharge and would be best suited to go to a [facility] rehab for short. 4. Strict blood pressure and blood sugar control 5. GI and DVT prophylaxis Discharge Plan: Home Plan to discharge in: Greater than 2 days - Advance Directives Does patient have a Living Will: No Does patient have a Durable POA for Healthcare: No - Code Status/Comfort Care Code Status Assessed: Yes Code Status: Full Code Critical Care: No Time Spent Managing PTS Care (In Minutes): 35
[2020-03-29] MEDS ORDERED: predniSONE 20 MG TAB PO ONE (15:00)
--- NOTE | 2020-03-29 15:04 | RAD REPORT ---
EXAM DESCRIPTION: RAD - Chest Single View - 03/29/2020 2:40 pm CLINICAL HISTORY: Shortness of breath, COVID positive COMPARISON: March 26 CT and portable chest TECHNIQUE: AP portable chest image was obtained 03/29/2020 2:40 pm . FINDINGS: Chronic interstitial lung pattern is present. No new or enlarging alveolar infiltrate or c onsolidation. No new or progressive lung parenchymal finding. Baseline prominent interstitial pattern remains. Heart and vasculature are normal. No measurable pleural effusion and no pneumothorax. No acute bony a bnormality seen. No acute aortic findings suspected. IMPRESSION: No acute cardiopulmonary process. No new or progressive finding from prior imaging.
[2020-03-29] MEDS ORDERED: predniSONE 20 MG TAB ONE (15:08)
--- NOTE | 2020-04-01 15:26 | P.DS ---
Discharge Date: 03/29/20 Primary Care Provider: RADHAMES Disposition: TRANSFER TO SNF - REHAB Discharge Condition: GOOD Reason for Admission: Pubic ramus fracture, intractable pain - Problems (1) COVID-19 Status: Acute (2) Fracture of superior pubic ramus Status: Acute Qualifiers: Encounter type: initial encounter Fracture type: closed Laterality: right Qualified Code(s): S32.511A - Fracture of superior rim of right pubis, initial encounter for closed fracture (3) Inferior pubic ramus fracture Status: Acute Qualifiers: Encounter type: initial encounter Fracture type: closed Laterality: right Qualified Code(s): S32.591A - Other specified fracture of right pubis, initial encounter for closed fracture (4) Intractable pain Status: Acute (5) Hypertension Status: Chronic Qualifiers: Hypertension type: essential hypertension Qualified Code(s): I10 - Essential (primary) hypertension (6) Non-insulin dependent diabetes mellitus Status: Chronic Brief History of Present Illness: This is a 80 y/o F with history of Hypertension, NIDDM, Hyperlipidemia, Depression, and arthritis that present to ED via EMS after sustaining accidental mechanical fall injury at her house early this AM. Stated that she was going to the bathroom and tripped on rug causing her to fall on right side hitting her head, neck, buttock, right elbow, and right wrist. Denied LOC. Patient worked up in the ED and found to have superior and inferior right pubic ramus fracture. Labs remarkable for potassium of 2.9. Otherwise stable and without any other acute findings. Patient in moderate pain upon motion and cannot ambulate or get out of bed secondary to pain from fracture. Medicine consulted at that time for admission. Hospital Course: Patient was treated with pain control and physical therapy. Patient was having a lot of difficulty ambulating because of the pelvic fractures. Patient is stable from a pulmonary standpoint. COVID-19 pneumonia is stable as well. At this time patient is stable for transfer to a chcf facility placement. Vital Signs/Physical Exam: Temp Pulse Resp BP Pulse Ox 97.2 F 73 23 H 135/75 94 04/01/20 15:22 04/01/20 15:22 04/01/20 15:22 04/01/20 15:22 04/01/20 15:22 General: Alert, In no apparent distress, Oriented x3 Laboratory Data at Discharge: WBC 4.9 K/uL (4.3-10.9) 03/27/20 04:31 Hgb 14.4 g/dL (12.0-15.0) 03/27/20 04:31 Hct 43.3 % (36.0-45.0) 03/27/20 04:31 Plt Count 142 K/uL (152-406) L 03/27/20 04:31 PT 12.1 SECONDS (9.5-12.5) 03/26/20 02:50 INR 1.03 03/26/20 02:50 Sodium 139 mmol/L (136-145) 03/29/20 04:35 Potassium 3.5 mmol/L (3.5-5.1) 03/29/20 04:35 BUN 17 mg/dL (7-18) 03/29/20 04:35 Creatinine 0.59 mg/dL (0.55-1.3) 03/29/20 04:35 Glucose 136 mg/dL (74-106) H 03/29/20 04:35 Magnesium 2.5 mg/dL (1.8-2.4) H 03/26/20 02:50 Total Bilirubin 0.4 mg/dL (0.2-1.0) 03/26/20 02:50 AST 36 U/L (15-37) 03/26/20 02:50 ALT 42 U/L (12-78) 03/26/20 02:50 Alkaline Phosphatase 62 U/L (45-117) 03/26/20 02:50 Home Medications: Cyclosporine [Restasis] 2 drop EACH EYE BID 03/26/20 Dapagliflozin Propanediol [Farxiga] 5 mg PO DAILY 03/26/20 Diclofenac Potassium [Zipsor] 25 mg PO BEDTIME 03/26/20 Ergocalciferol (Vitamin D2) [Vitamin D2] 50 mcg PO EVERY 7TH DAY 03/26/20 Escitalopram Oxalate [Lexapro] 10 mg PO DAILY 03/26/20 Mirabegron [Myrbetriq] 50 mg PO DAILY 03/26/20 Pravastatin Sodium 20 mg PO BEDTIME 03/26/20 Sennosides/Docusate Sodium [Senokot-S Tablet] 1 each PO SEECOM 03/26/20 Albuterol Inhaler [Ventolin Inhaler*] 2 puff IH Q6H PRN #1 hfa.aer.ad 03/29/20 Nebivolol HCl [Bystolic] 5 mg PO DAILY #30 tab 03/29/20 dilTIAZem HCL [Diltiazem 24Hr ER (Xr)] 120 mg PO DAILY #30 cap.er.deg 03/29/20 hydroCHLOROthiazide [Hydrochlorothiazide*] 12.5 mg PO DAILY #30 cap 03/29/20 predniSONE [Deltasone] 20 mg PO BID #12 tab 03/29/20 New Medications: Nebivolol HCl [Bystolic] 5 mg PO DAILY #30 tab dilTIAZem HCL [Diltiazem 24Hr ER (Xr)] 120 mg PO DAILY #30 cap.er.deg hydroCHLOROthiazide [Hydrochlorothiazide*] 12.5 mg PO DAILY #30 cap predniSONE [Deltasone] 20 mg PO BID #12 tab Albuterol Inhaler [Ventolin Inhaler*] 2 puff IH Q6H PRN #1 hfa.aer.ad PRN Reason: Shortness Of Breath Patient Discharge Instructions: OK TO DC IV AND DC HOME. FOLLOW-UP WITH PRIMARY CARE PROVIDER IN 1-2 WEEKS. FOLLOW-UP WITH ORTHOPEDICS IN 1-2 WEEKS. FOLLOW-UP WITH PULMONARY IN 1-2 WEEKS. RETURN TO THE ER IF SYMPTOMS WORSEN. CALL or TEXT DR. HAMM AT [phone] IF ANY QUESTIONS REGARDING HOSPITAL STAY. PLEASE CALL THE FLOOR AT [phone] IF ANY MEDICATION OR NURSING QUESTIONS. Diet: AHA Activity: per physical therapy Followup: Margret Mendez MD [Primary Care Provider] - Time spent managing pt's care (in minutes): 35
== END 2020-03-29 15:15 | DRG 535 ==
LOC: ER 01:26 → ERHOLD 04:42 → 2ND 07:53 → 3RD-ICU 03-27 00:03
PROVIDERS: ADMIT Internal Medicine Sleep Medicine; ATTEND Hospitalist
DX: S32.591A Other specified fracture of right pubis, initial encounter for closed fracture (principal); U07.1 COVID-19; J12.89 Other viral pneumonia; I10 Essential (primary) hypertension; E11.9 Type 2 diabetes mellitus without complications; E87.6 Hypokalemia; E78.5 Hyperlipidemia, unspecified; N30.90 Cystitis, unspecified without hematuria; W18.09XA Striking against other object with subsequent fall, initial encounter; Y92.091 Bathroom in other non-institutional residence as the place of occurrence of the external cause; Z88.5 Allergy status to narcotic agent; Z88.1 Allergy status to other antibiotic agents; Z79.52 Long term (current) use of systemic steroids; Z79.899 Other long term (current) drug therapy
CPT/HCPCS: 36415; 51702; 70450; 71045; 71260; 72125; 72170; 74177; 80048; 80076; 81003; 81015; 82947; 83735; 83880; 84132; 84484; 85025; 85610; 87077; 87086; 87088; 87186; 93005; 96361; 96374; 96375; 97110; 97112; 97161; 97530; 99285; J1650; J2270; J2405; J3010; J3480; J7030; J7512; Q2035; Q9967; U0003